=== PATIENT | female | born 1950 | race African-American/Black ===

== ENCOUNTER 2021-03-17 13:08 | Inpatient (IN) | payer MEDICARE, MEDICAID ==
[~2021-03-17] VITALS: Ht 162.6 cm; Wt 64.0 kg
[2021-03-17 13:30] LABS: BASOPHILS % 1.3 % (0.0-2.0); EOSINOPHILS % 1.9 % (0.0-5.0); HEMATOCRIT. 32.1 % (36.0-48.0); HEMOGLOBIN. 10.4 g/dL (12.0-16.0); LYMPHOCYTES % 41.5 % (20.0-50.0); MEAN CORPUSCULAR VOLUME 71.1 fL (81.0-99.0); MEAN PLATELET VOLUME 9.3 fl (7.4-10.4); MONOCYTES % 10.3 % (2.0-8.0); PLATELET 172 x1000/uL (130-400); RED BLOOD CELL COUNT 4.51 mill/uL (4.2-5.4); RED CELL DISTRIBUTION WIDTH 17.1 % (11.6-14.6)
[2021-03-17 13:37] LABS: CHLORIDE 113 mEq/L (98-107)
[2021-03-17] MEDS ORDERED: ENALAPRIL 2.5MG/2ML VIAL 2ML IV ONE (14:30)
[2021-03-17] MEDS ORDERED: FUROSEMIDE 40MG/4ML VIAL IVP ONE (14:30)
[2021-03-17] MEDS ORDERED: ACETAMINOPHEN 325MG TABLET PO PRN (21:45)
[2021-03-17] MEDS ORDERED: MAGNESIUM/ALUMINUM HYDROXIDE/SIMETHICONE 30ML UDC PO PRN (21:45)
[2021-03-17] MEDS ORDERED: LORAZEPAM 2MG/ML CPJ IV PRN (21:45)
[2021-03-17] MEDS ORDERED: ONDANSETRON HCL 4MG/2ML INJ IV PRN (21:45)
[2021-03-17] MEDS ORDERED: MORPHINE SULFATE 2 MG/ML CPJ (NOT FOR IM USE) IV PRN (21:45)
[2021-03-17] MEDS ORDERED: LISINOPRIL 20MG TABLET PO SCH (21:52)
[2021-03-17] MEDS: AMLODIPINE 10MG TABLET PO SCH (22:33)
[2021-03-18] VITALS (7 sets, daily range): BP systolic 156–184; BP diastolic 61–82
[2021-03-18] MEDS: CLONIDINE 0.1MG TABLET PO PRN ×2 (01:26→07:51)
[2021-03-18 06:41] LABS: BASOPHILS % 0.8 % (0.0-2.0); EOSINOPHILS % 1.8 % (0.0-5.0); HEMATOCRIT. 29.7 % (36.0-48.0); HEMOGLOBIN. 9.4 g/dL (12.0-16.0); LYMPHOCYTES % 19.5 % (20.0-50.0); MEAN CORPUSCULAR HEMOGLOBIN 22.4 pg (28.0-32.0); MEAN CORPUSCULAR VOLUME 70.9 fL (81.0-99.0); MEAN PLATELET VOLUME 9.3 fl (7.4-10.4); MONOCYTES % 11.2 % (2.0-8.0); NEUTROPHILS % 66.7 % (40.0-76.0); PLATELET 139 x1000/uL (130-400); RED BLOOD CELL COUNT 4.19 mill/uL (4.2-5.4); RED CELL DISTRIBUTION WIDTH 17.1 % (11.6-14.6)
[2021-03-18 06:49] LABS: CHLORIDE 110 mEq/L (98-107)
[2021-03-18 06:58] LABS: LDL CHOLESTEROL 105 mg/dL (5-100)
[2021-03-18 06:59] LABS: CREATINE KINASE 81 IU/L (26-192); HDL CHOLESTEROL 55 mg/dL (40-59)
[2021-03-18] MEDS ORDERED: NALOXONE HCL 0.4MG/ML VIAL IV PRN (08:30)
[2021-03-18] MEDS ORDERED: OXYB5TAB17 PO (12:02)
[2021-03-18] MEDS ORDERED: NIFE-32 MT (12:02)
[2021-03-18] MEDS ORDERED: ATOR20TA65 MT (12:02)
[2021-03-18] MEDS ORDERED: HYDR100T26 MT (12:02)
[2021-03-18] MEDS ORDERED: IRBE75TA9 MT (12:02)
[2021-03-18] MEDS ORDERED: POTA20TA82 MT (12:02)
[2021-03-18] MEDS ORDERED: TRAZ-251 MT (12:02)
[2021-03-18] MEDS ORDERED: CARV12.545 MT (12:02)
[2021-03-18] MEDS: ENOXAPARIN 30MG/0.3ML SYR SUBCUT SCH (13:14)
[2021-03-18] MEDS: ASPIRIN 81MG EC TABLET PO SCH (13:14)
[2021-03-18] MEDS: AMLODIPINE 10MG TABLET PO SCH (13:14)
[2021-03-18] MEDS: LOSARTAN POTASSIUM 100 MG TABLET PO SCH (13:14)
[2021-03-18] MEDS: FUROSEMIDE 40MG/4ML VIAL IV SCH (13:14)
[2021-03-18] MEDS ORDERED: HYDRALAZINE HCL 10MG TABLET PO SCH (14:00)
[2021-03-18] MEDS: HYDRALAZINE HCL 50MG TABLET PO SCH ×2 (19:16→22:00)
[2021-03-18] MEDS: ATORVASTATIN CALCIUM 20MG TABLET PO SCH (22:12)
[2021-03-19] VITALS (10 sets, daily range): BP systolic 154–190; BP diastolic 72–101
[2021-03-19] MEDS: HYDRALAZINE HCL 50MG TABLET PO SCH ×3 (05:39→21:37)
[2021-03-19 07:16] LABS: BASOPHILS % 0.5 % (0.0-2.0); EOSINOPHILS % 2.4 % (0.0-5.0); HEMATOCRIT. 30.5 % (36.0-48.0); HEMOGLOBIN. 9.6 g/dL (12.0-16.0); MEAN CORPUSCULAR HEMOGLOBIN 22.4 pg (28.0-32.0); MEAN CORPUSCULAR VOLUME 71.4 fL (81.0-99.0); MEAN PLATELET VOLUME 10.1 fl (7.4-10.4); MONOCYTES % 13.3 % (2.0-8.0); NEUTROPHILS % 57.8 % (40.0-76.0); PLATELET 126 x1000/uL (130-400); RED BLOOD CELL COUNT 4.27 mill/uL (4.2-5.4); RED CELL DISTRIBUTION WIDTH 17.3 % (11.6-14.6)
[2021-03-19] MEDS: ASPIRIN 81MG EC TABLET PO SCH (08:25)
[2021-03-19] MEDS: FUROSEMIDE 40MG/4ML VIAL IV SCH (08:26)
[2021-03-19] MEDS: ENOXAPARIN 30MG/0.3ML SYR SUBCUT SCH (08:26)
[2021-03-19] MEDS: AMLODIPINE 10MG TABLET PO SCH (08:27)
[2021-03-19] MEDS: LOSARTAN POTASSIUM 100 MG TABLET PO SCH (08:27)
[2021-03-19] MEDS ORDERED: REGADENOSON 0.4 MG/5 ML IV NR (09:45)
[2021-03-19] MEDS ORDERED: REGADENOSON 0.4 MG/5 ML IV ONE (13:52)
[2021-03-19] MEDS: CLONIDINE 0.1MG TABLET PO PRN (19:52)
[2021-03-19] MEDS: ATORVASTATIN CALCIUM 20MG TABLET PO SCH (21:37)
[2021-03-20] VITALS (8 sets, daily range): BP systolic 157–183; BP diastolic 62–84
[2021-03-20] MEDS: HYDRALAZINE HCL 50MG TABLET PO SCH (05:39)
[2021-03-20 07:43] LABS: BASOPHILS % 0.2 % (0.0-2.0); HEMATOCRIT. 30.4 % (36.0-48.0); HEMOGLOBIN. 9.7 g/dL (12.0-16.0); LYMPHOCYTES % 22.8 % (20.0-50.0); MEAN CORPUSCULAR HEMOGLOBIN 22.6 pg (28.0-32.0); MEAN CORPUSCULAR VOLUME 70.6 fL (81.0-99.0); MEAN PLATELET VOLUME 9.9 fl (7.4-10.4); PLATELET 141 x1000/uL (130-400); RED BLOOD CELL COUNT 4.31 mill/uL (4.2-5.4)
[2021-03-20] MEDS: ASPIRIN 81MG EC TABLET PO SCH (08:03)
[2021-03-20] MEDS: AMLODIPINE 10MG TABLET PO SCH (08:04)
[2021-03-20] MEDS: LOSARTAN POTASSIUM 100 MG TABLET PO SCH (08:04)
[2021-03-20] MEDS: ENOXAPARIN 30MG/0.3ML SYR SUBCUT SCH (08:04)
[2021-03-20] MEDS ORDERED: POTASSIUM CHLORIDE 20MEQ TABLET SR PO NR (09:30)
[2021-03-20] MEDS ORDERED: POTA10CA42 PO (11:17)
[2021-03-20] MEDS ORDERED: LOSA50TA41 PO (11:18)
[2021-03-20] MEDS ORDERED: FURO40TA5 PO (11:18)
[2021-03-20] MEDS ORDERED: ASPI-1406 PO (11:19)
[2021-03-20] MEDS ORDERED: AMLO10TA4 PO (11:20)
[2021-03-20] MEDS ORDERED: HYDRALAZINE HCL 100MG TABLET PO SCH ×2 (12:00→14:00)
[2021-03-21] MEDS ORDERED: LOSARTAN POTASSIUM 100 MG TABLET PO SCH (09:00)
== END 2021-03-20 12:59 | disposition home or self-care (01) | DRG 291 ==
LOC: ER 13:08 → MICUSO 21:10 → 3WST 03-18 08:22
PROVIDERS: ADMIT Hospitalist; ATTEND Hospitalist
PROC: 5A09357 Assistance with Respiratory Ventilation, Less than 24 Consecutive Hours, Continuous Positive Airway Pressure (ICD-10-PCS; principal; 2021-03-17)
DX: I13.0 Hypertensive heart and chronic kidney disease with heart failure and stage 1 through stage 4 chronic kidney disease, or unspecified chronic kidney disease (principal); I50.23 Acute on chronic systolic (congestive) heart failure; I16.9 Hypertensive crisis, unspecified; N17.9 Acute kidney failure, unspecified; E78.5 Hyperlipidemia, unspecified; D63.8 Anemia in other chronic diseases classified elsewhere; R00.1 Bradycardia, unspecified; F12.90 Cannabis use, unspecified, uncomplicated; N18.9 Chronic kidney disease, unspecified; I25.10 Atherosclerotic heart disease of native coronary artery without angina pectoris; Z86.73 Personal history of transient ischemic attack (TIA), and cerebral infarction without residual deficits; Z82.49 Family history of ischemic heart disease and other diseases of the circulatory system; Z87.891 Personal history of nicotine dependence; Z90.711 Acquired absence of uterus with remaining cervical stump; Z98.51 Tubal ligation status; Z90.710 Acquired absence of both cervix and uterus
CPT/HCPCS: 36415; 71045; 78452; 80048; 80053; 80061; 82550; 83735; 84443; 84484; 85025; 93005; 93017; 93306; 93970; 94660; 99285; A9500; J1650; J1940; J2785; J3490

== ENCOUNTER 2021-06-13 09:30 | Inpatient (IN) | payer MEDICARE, MEDICAID ==
[~2021-06-13] VITALS: Ht 162.6 cm; Wt 68.5 kg
[~2021-06-13 09:30] MED LIST: AMLO10TA4 PO; ASPI-1406 PO; ATOR20TA65 MT; FURO40TA5 PO; HYDR100T26 MT; LOSA50TA41 PO; OXYB5TAB17 PO; POTA10CA42 PO; TRAZ-251 MT
[2021-06-13] MEDS ORDERED: IPRATROPIUM BROMIDE (0.02%) 0.5MG/2.5ML NEB HHN STA (10:18)
[2021-06-13] MEDS ORDERED: ALBUTEROL (0.083%) 2.5MG/3ML NEB HHN STA (10:18)
[2021-06-13] MEDS ORDERED: FUROSEMIDE 20MG/2ML VIAL IVP ONE (10:30)
[2021-06-13] MEDS ORDERED: LEVOFLOXACIN 500MG PREMIX 100 ML IV ONE (10:30)
[2021-06-13 10:42] LABS: BASOPHILS % 0.4 % (0.0-2.0); EOSINOPHILS % 0.9 % (0.0-5.0); HEMATOCRIT. 29.2 % (36.0-48.0); HEMOGLOBIN. 8.9 g/dL (12.0-16.0); LYMPHOCYTES % 15.4 % (20.0-50.0); MEAN CORPUSCULAR HEMOGLOBIN 21.4 pg (28.0-32.0); MEAN CORPUSCULAR VOLUME 70.4 fL (81.0-99.0); MEAN PLATELET VOLUME 8.9 fl (7.4-10.4); MONOCYTES % 10.9 % (2.0-8.0); NEUTROPHILS % 72.4 % (40.0-76.0); PLATELET 190 x1000/uL (130-400); RED BLOOD CELL COUNT 4.14 mill/uL (4.2-5.4); RED CELL DISTRIBUTION WIDTH 18.3 % (11.6-14.6)
[2021-06-13 10:48] LABS: CHLORIDE 111 mEq/L (98-107)
[2021-06-13] MEDS ORDERED: DOCUSATE SODIUM 100MG CAPSULE PO PRN (15:15)
[2021-06-13] MEDS ORDERED: IPRATROPIUM/ALBUTEROL 0.5-3(2.5)MG/3ML NEB HHN PRN (15:15)
[2021-06-13] MEDS ORDERED: MAGNESIUM/ALUMINUM HYDROXIDE/SIMETHICONE 30ML UDC PO PRN (15:15)
[2021-06-13] MEDS ORDERED: ENOXAPARIN 40MG/0.4ML SYR SUBCUT SCH (15:15)
[2021-06-13] MEDS ORDERED: ACETAMINOPHEN 325MG TABLET PO PRN (15:15)
[2021-06-13] MEDS: ONDANSETRON HCL 4MG/2ML INJ IV PRN ×2 (18:14→23:30)
[2021-06-13] MEDS: HYDROCODONE/ACETAMINOPHEN 10/325MG TABLET PO PRN (18:15)
[2021-06-13] MEDS: ENOXAPARIN 30MG/0.3ML SYR SUBCUT SCH (18:19)
[2021-06-13] MEDS: CLONIDINE 0.1MG TABLET PO PRN (19:10)
[2021-06-13 23:15] VITALS: BP 179/76
[2021-06-14] VITALS: BP 150/60
[2021-06-14] MEDS: FUROSEMIDE 100MG/10ML VIAL IV SCH ×3 (00:08→16:47)
[2021-06-14] MEDS: POTASSIUM CHLORIDE 20MEQ TABLET SR PO SCH ×2 (00:09→10:40)
[2021-06-14] MEDS: HYDROCODONE/ACETAMINOPHEN 10/325MG TABLET PO PRN (00:57)
[2021-06-14 04:00] VITALS: BP 185/81
[2021-06-14] MEDS: CLONIDINE 0.1MG TABLET PO PRN ×3 (04:57→23:51)
[2021-06-14 07:25] LABS: BASOPHILS % 0.2 % (0.0-2.0); EOSINOPHILS % 0.1 % (0.0-5.0); HEMATOCRIT. 25.2 % (36.0-48.0); LYMPHOCYTES % 10.7 % (20.0-50.0); MEAN CORPUSCULAR HEMOGLOBIN 22.1 pg (28.0-32.0); MEAN CORPUSCULAR VOLUME 69.5 fL (81.0-99.0); MEAN PLATELET VOLUME 9.8 fl (7.4-10.4); MONOCYTES % 6.8 % (2.0-8.0); NEUTROPHILS % 82.2 % (40.0-76.0); PLATELET 172 x1000/uL (130-400); RED BLOOD CELL COUNT 3.63 mill/uL (4.2-5.4)
[2021-06-14 07:38] LABS: PHOSPHORUS 4.2 mg/dL (2.5-4.9)
[2021-06-14 07:43] LABS: T4 FREE 1.28 ng/dL (0.76-1.46)
[2021-06-14 08:00] VITALS: BP 136/73
[2021-06-14 08:04] LABS: FERRITIN 24 ng/mL (10-291)
[2021-06-14 08:19] LABS: VITAMIN B12 SERUM 581 pg/mL (211-911)
[2021-06-14 09:43] LABS: BG BASE EXCESS 1.1 mmol/L (-2.0-2.0); BG CARBOXYHEMOGLOBIN 0.3 % (0.5-1.5); BG DEOXYHEMOGLOBIN 10.2 % (0.0-5.0); BG FRACTION INSPIRED OXYGEN 28; BG HCO3 ACT 25.3 mmol/L (22.0-26.0); BG METHEMOGLOBIN 0.4 % (0.0-1.5); BG OXYGEN SATURATION 89.7 % (92.0-98.5); BG OXYHEMOGLOBIN 89.1 % (94.0-97.0); BG PCO2 38.7 mmHg (35.0-45.0); BG PH 7.434 (7.350-7.450); BG PO2 60.3 mmHg (75.0-100.0); BG SAMPLE SITE LEFT BRACHIAL; BG TOTAL HEMOGLOBIN 8.4 g/dL (12.0-18.0); BG VENT MODE NASAL CANNULA
[2021-06-14 10:12] LABS: *AMPHETAMINES SCREEN URINE NEGATIVE (NEGATIVE); *BARBITURATES SCREEN URINE NEGATIVE (NEGATIVE); *BENZODIAZEPINES SCREEN URINE NEGATIVE (NEGATIVE); *COCAINE SCREEN URINE NEGATIVE (NEGATIVE); METHADONE URINE SCREEN NEGATIVE (NEGATIVE)
[2021-06-14 10:13] LABS: CANNABINOID URINE SCREEN PRESUMTIVE POSITIVE (NEGATIVE); OPIATES URINE SCREEN PRESUMTIVE POSITIVE (NEGATIVE); PHENCYCLIDINE URINE SCREEN NEGATIVE (NEGATIVE)
[2021-06-14] MEDS: CARVEDILOL 6.25 MG TABLET PO SCH ×2 (10:40→20:28)
[2021-06-14 12:00] VITALS: BP 179/83
[2021-06-14 13:05] LABS: PLATELET ESTIMATE NORMAL
[2021-06-14 16:00] VITALS: BP 178/77
[2021-06-14] MEDS: ENOXAPARIN 30MG/0.3ML SYR SUBCUT SCH (16:47)
[2021-06-14 20:00] VITALS: BP 176/66
[2021-06-14] MEDS: FAMOTIDINE 20MG TABLET PO SCH (20:28)
[2021-06-15] VITALS: BP 173/74
[2021-06-15 04:00] VITALS: BP 158/75
[2021-06-15 07:21] LABS: BASOPHILS % 0.4 % (0.0-2.0); EOSINOPHILS % 1.5 % (0.0-5.0); HEMATOCRIT. 25.7 % (36.0-48.0); MEAN CORPUSCULAR HEMOGLOBIN 21.7 pg (28.0-32.0); MEAN CORPUSCULAR VOLUME 69.6 fL (81.0-99.0); MEAN PLATELET VOLUME 9.7 fl (7.4-10.4); MONOCYTES % 11.2 % (2.0-8.0); NEUTROPHILS % 66.9 % (40.0-76.0); PLATELET 169 x1000/uL (130-400); RED BLOOD CELL COUNT 3.69 mill/uL (4.2-5.4); RED CELL DISTRIBUTION WIDTH 17.5 % (11.6-14.6)
[2021-06-15] MEDS: HYDROCODONE/ACETAMINOPHEN 10/325MG TABLET PO PRN (07:51)
[2021-06-15 08:00] VITALS: BP 180/71
[2021-06-15] MEDS: CARVEDILOL 6.25 MG TABLET PO SCH ×2 (08:38→21:22)
[2021-06-15] MEDS: POTASSIUM CHLORIDE 20MEQ TABLET SR PO SCH (08:38)
[2021-06-15] MEDS: FUROSEMIDE 100MG/10ML VIAL IV SCH (08:38)
[2021-06-15] MEDS ORDERED: FUROSEMIDE 40MG/4ML VIAL IV SCH (09:00)
[2021-06-15 12:00] VITALS: BP 167/65
[2021-06-15] MEDS: CLONIDINE 0.2MG TABLET PO SCH ×2 (14:21→21:21)
[2021-06-15 16:00] VITALS: BP 158/68
[2021-06-15] MEDS: ENOXAPARIN 30MG/0.3ML SYR SUBCUT SCH (16:22)
[2021-06-15 20:00] VITALS: BP 154/67
[2021-06-15] MEDS: FAMOTIDINE 20MG TABLET PO SCH (21:21)
[2021-06-16] VITALS: BP 158/63
[2021-06-16 04:00] VITALS: BP 172/70
[2021-06-16 06:23] LABS: BASOPHILS % 0.3 % (0.0-2.0); EOSINOPHILS % 1.5 % (0.0-5.0); LYMPHOCYTES % 20.8 % (20.0-50.0); MEAN CORPUSCULAR HEMOGLOBIN 21.5 pg (28.0-32.0); MEAN CORPUSCULAR VOLUME 69.7 fL (81.0-99.0); MEAN PLATELET VOLUME 9.9 fl (7.4-10.4); MONOCYTES % 13.4 % (2.0-8.0); PLATELET 169 x1000/uL (130-400); RED BLOOD CELL COUNT 3.73 mill/uL (4.2-5.4); RED CELL DISTRIBUTION WIDTH 17.7 % (11.6-14.6)
[2021-06-16] MEDS: CLONIDINE 0.2MG TABLET PO SCH ×3 (06:23→21:44)
[2021-06-16 08:00] VITALS: BP 173/70
[2021-06-16] MEDS: CARVEDILOL 6.25 MG TABLET PO SCH ×2 (08:39→21:00)
[2021-06-16] MEDS: POTASSIUM CHLORIDE 20MEQ TABLET SR PO SCH (08:39)
[2021-06-16] MEDS: FERROUS SULFATE 325MG TABLET PO SCH ×3 (08:39→17:30)
[2021-06-16] MEDS ORDERED: LOSARTAN POTASSIUM 50 MG TABLET PO SCH (09:00)
[2021-06-16] MEDS: SODIUM CHLORIDE 0.45% 1,000 ML IV SCH (10:52)
[2021-06-16 10:59] LABS: BG BASE EXCESS 3.9 mmol/L (-2.0-2.0); BG CARBOXYHEMOGLOBIN 0.2 % (0.5-1.5); BG DEOXYHEMOGLOBIN 4.7 % (0.0-5.0); BG FRACTION INSPIRED OXYGEN 21; BG HCO3 ACT 27.6 mmol/L (22.0-26.0); BG METHEMOGLOBIN 0.3 % (0.0-1.5); BG OXYGEN SATURATION 95.3 % (92.0-98.5); BG OXYHEMOGLOBIN 94.8 % (94.0-97.0); BG PCO2 38.1 mmHg (35.0-45.0); BG PH 7.478 (7.350-7.450); BG PO2 75.9 mmHg (75.0-100.0); BG SAMPLE SITE LEFT BRACHIAL; BG TOTAL HEMOGLOBIN 8.8 g/dL (12.0-18.0); BG VENT MODE ROOM AIR
[2021-06-16 11:20] LABS: CREATINE KINASE 84 IU/L (26-192)
[2021-06-16 12:00] VITALS: BP 137/67
[2021-06-16 16:00] VITALS: BP 126/65
[2021-06-16] MEDS: ENOXAPARIN 30MG/0.3ML SYR SUBCUT SCH (17:30)
[2021-06-16 18:31] LABS: CLARITY URINE CLEAR (CLEAR); COLOR URINE YELLOW (YELLOW); KETONES URINE NEGATIVE (NEGATIVE); LEUKOCYTE ESTERASE URINE NEGATIVE (NEGATIVE); NITRITE URINE NEGATIVE (NEGATIVE); OCCULT BLOOD URINE NEGATIVE (NEGATIVE); PROTEIN URINE 3+ (NEGATIVE); SPECIFIC GRAVITY URINE 1.016 (1.005-1.030); UROBILINOGEN URINE 0.2 E.U./dL (0.2-1.0)
[2021-06-16 20:00] VITALS: BP 160/69
[2021-06-16] MEDS: FAMOTIDINE 20MG TABLET PO SCH (21:43)
[2021-06-17] VITALS: BP 175/75
[2021-06-17] MEDS: CLONIDINE 0.1MG TABLET PO PRN (00:23)
[2021-06-17 05:53] VITALS: BP 164/73
[2021-06-17] MEDS: CLONIDINE 0.2MG TABLET PO SCH ×3 (06:14→21:33)
[2021-06-17 06:59] LABS: BASOPHILS % 0.7 % (0.0-2.0); EOSINOPHILS % 2.1 % (0.0-5.0); HEMATOCRIT. 26.2 % (36.0-48.0); HEMOGLOBIN. 8.1 g/dL (12.0-16.0); LYMPHOCYTES % 20.3 % (20.0-50.0); MEAN CORPUSCULAR HEMOGLOBIN 21.9 pg (28.0-32.0); MEAN CORPUSCULAR VOLUME 70.5 fL (81.0-99.0); MEAN PLATELET VOLUME 9.8 fl (7.4-10.4); MONOCYTES % 10.6 % (2.0-8.0); NEUTROPHILS % 66.3 % (40.0-76.0); PLATELET 167 x1000/uL (130-400); RED BLOOD CELL COUNT 3.71 mill/uL (4.2-5.4); RED CELL DISTRIBUTION WIDTH 17.1 % (11.6-14.6)
[2021-06-17 08:00] VITALS: BP 130/55
[2021-06-17] MEDS: CARVEDILOL 6.25 MG TABLET PO SCH ×2 (08:43→21:32)
[2021-06-17] MEDS: FERROUS SULFATE 325MG TABLET PO SCH ×3 (08:48→16:53)
[2021-06-17 12:00] VITALS: BP 140/53
[2021-06-17 16:00] VITALS: BP 153/55
[2021-06-17] MEDS: ENOXAPARIN 30MG/0.3ML SYR SUBCUT SCH (16:53)
[2021-06-17 20:00] VITALS: BP 150/62
[2021-06-17] MEDS: FAMOTIDINE 20MG TABLET PO SCH (21:32)
[2021-06-18] VITALS: BP 149/52
[2021-06-18] MEDS: SODIUM CHLORIDE 0.45% 1,000 ML IV SCH (00:49)
[2021-06-18 04:00] VITALS: BP 160/64
[2021-06-18] MEDS: CLONIDINE 0.2MG TABLET PO SCH ×2 (06:23→14:42)
[2021-06-18 08:00] VITALS: BP 156/67
[2021-06-18] MEDS: CARVEDILOL 6.25 MG TABLET PO SCH (08:29)
[2021-06-18] MEDS: FERROUS SULFATE 325MG TABLET PO SCH ×2 (08:39→12:31)
[2021-06-18 12:00] VITALS: BP 173/63
[2021-06-18] MEDS ORDERED: NA PHOS,M-B/NA PHOS,DI-BA ENEMA 118ML PR SCH (12:00)
[2021-06-18] MEDS ORDERED: DOCUSATE SODIUM 100MG CAPSULE PO SCH (12:00)
[2021-06-18] MEDS ORDERED: HYDRALAZINE 20MG/ML VIAL IV SCH (12:45)
[2021-06-18 13:01] LABS: BASOPHILS % 0.3 % (0.0-2.0); EOSINOPHILS % 2.9 % (0.0-5.0); HEMATOCRIT. 26.2 % (36.0-48.0); HEMOGLOBIN. 8.1 g/dL (12.0-16.0); LYMPHOCYTES % 23.7 % (20.0-50.0); MEAN CORPUSCULAR HEMOGLOBIN 21.4 pg (28.0-32.0); MEAN CORPUSCULAR VOLUME 69.4 fL (81.0-99.0); MEAN PLATELET VOLUME 9.3 fl (7.4-10.4); MONOCYTES % 13.2 % (2.0-8.0); NEUTROPHILS % 59.9 % (40.0-76.0); PLATELET 177 x1000/uL (130-400); RED BLOOD CELL COUNT 3.77 mill/uL (4.2-5.4); RED CELL DISTRIBUTION WIDTH 17.4 % (11.6-14.6)
[2021-06-18] MEDS ORDERED: FERR-63 PO (13:34)
[2021-06-18] MEDS ORDERED: COR6 PO (13:34)
[2021-06-18] MEDS ORDERED: HYDR-4135 MT (13:34)
[2021-06-18 13:37] LABS: CHLORIDE 107 mEq/L (98-107)
[2021-06-18] MEDS ORDERED: HYDRALAZINE HCL 25MG TABLET PO NR (15:39)
[2021-06-18 15:48] VITALS: BP 179/68
[2021-06-18 16:00] VITALS: BP 186/71
== END 2021-06-18 16:15 | disposition home health service (06) | DRG 291 ==
LOC: ER 09:30 → MICUSO 12:12 → EDBEDREQ 12:17 → 6WST 22:22
PROVIDERS: ADMIT Internal Medicine Pulmonary Disease; ATTEND Internal Medicine Pulmonary Disease
DX: I13.0 Hypertensive heart and chronic kidney disease with heart failure and stage 1 through stage 4 chronic kidney disease, or unspecified chronic kidney disease (principal); J96.00 Acute respiratory failure, unspecified whether with hypoxia or hypercapnia; I50.23 Acute on chronic systolic (congestive) heart failure; I31.3 Pericardial effusion (noninflammatory); N17.9 Acute kidney failure, unspecified; D64.9 Anemia, unspecified; E78.5 Hyperlipidemia, unspecified; N18.9 Chronic kidney disease, unspecified; D50.9 Iron deficiency anemia, unspecified; I35.1 Nonrheumatic aortic (valve) insufficiency; Z20.822 Contact with and (suspected) exposure to COVID-19; R00.1 Bradycardia, unspecified; I27.20 Pulmonary hypertension, unspecified; I44.0 Atrioventricular block, first degree; Z86.73 Personal history of transient ischemic attack (TIA), and cerebral infarction without residual deficits; Z90.710 Acquired absence of both cervix and uterus; Z79.82 Long term (current) use of aspirin; Z79.899 Other long term (current) drug therapy
CPT/HCPCS: 36415; 36600; 71045; 76770; 78582; 80048; 80053; 80061; 80305; 81003; 82375; 82550; 82607; 82728; 82746; 82805; 83540; 83550; 83605; 83735; 83880; 84100; 84439; 84443; 84484; 85025; 85379; 87426; 93005; 93306; 93970; 94640; 97162; 97166; 99291; A9558; C1893; J0360; J1650; J1940; J1956; J2405

== ENCOUNTER 2021-06-18 17:26 | Inpatient (IN) | payer MEDICARE, MEDICAID ==
[~2021-06-18] VITALS: Ht 170.2 cm; Wt 63.5 kg
[~2021-06-18 17:26] MED LIST changes: -AMLO10TA4 PO; -ASPI-1406 PO; -ATOR20TA65 MT; +COR6 PO; +FERR-63 PO; -FURO40TA5 PO; +HYDR-4135 MT; -HYDR100T26 MT; -LOSA50TA41 PO; -OXYB5TAB17 PO; -POTA10CA42 PO; -TRAZ-251 MT
[2021-06-18] MEDS ORDERED: NITROGLYCERIN OINT 1GM/INCH UDPKT TD ONE (20:00)
[2021-06-18] MEDS ORDERED: ASPIRIN 81MG TABLET PO ONE (20:00)
[2021-06-18 20:24] LABS: BASOPHILS % 0.6 % (0.0-2.0); EOSINOPHILS % 0.5 % (0.0-5.0); HEMATOCRIT. 28.3 % (36.0-48.0); HEMOGLOBIN. 8.5 g/dL (12.0-16.0); LYMPHOCYTES % 8.4 % (20.0-50.0); MEAN CORPUSCULAR HEMOGLOBIN 21.1 pg (28.0-32.0); MEAN CORPUSCULAR VOLUME 69.9 fL (81.0-99.0); MEAN PLATELET VOLUME 9.6 fl (7.4-10.4); MONOCYTES % 8.9 % (2.0-8.0); NEUTROPHILS % 81.6 % (40.0-76.0); PLATELET 171 x1000/uL (130-400); RED BLOOD CELL COUNT 4.05 mill/uL (4.2-5.4); RED CELL DISTRIBUTION WIDTH 17.7 % (11.6-14.6)
[2021-06-18 20:31] LABS: CHLORIDE 109 mEq/L (98-107)
[2021-06-18 20:34] LABS: PARTIAL THROMBOPLASTIN TIME 25.6 sec (23.4-31.0); PROTHROMBIN TIME 10.5 sec (9.6-11.0)
[2021-06-18 21:34] LABS: PLATELET ESTIMATE NORMAL
[2021-06-19] MEDS ORDERED: FUROSEMIDE 20MG/2ML VIAL IVP ONE (00:30)
[2021-06-19] MEDS ORDERED: ACETAMINOPHEN 325MG TABLET PO PRN (06:00)
[2021-06-19] MEDS ORDERED: ENOXAPARIN 40MG/0.4ML SYR SUBCUT SCH (06:00)
[2021-06-19] MEDS ORDERED: DOCUSATE SODIUM 100MG CAPSULE PO PRN (06:00)
[2021-06-19 06:23] LABS: BASOPHILS % 0.5 % (0.0-2.0); HEMATOCRIT. 25.4 % (36.0-48.0); LYMPHOCYTES % 24.3 % (20.0-50.0); MEAN CORPUSCULAR HEMOGLOBIN 21.6 pg (28.0-32.0); MEAN CORPUSCULAR VOLUME 68.5 fL (81.0-99.0); MEAN PLATELET VOLUME 9.4 fl (7.4-10.4); MONOCYTES % 12.4 % (2.0-8.0); NEUTROPHILS % 60.8 % (40.0-76.0); PLATELET 160 x1000/uL (130-400); RED CELL DISTRIBUTION WIDTH 17.3 % (11.6-14.6)
[2021-06-19] MEDS: FERROUS SULFATE 325MG TABLET PO SCH ×3 (07:39→18:26)
[2021-06-19] MEDS: ENOXAPARIN 30MG/0.3ML SYR SUBCUT SCH (10:24)
[2021-06-19] MEDS: HYDRALAZINE HCL 50MG TABLET PO SCH ×3 (10:25→21:00)
[2021-06-19] MEDS: CARVEDILOL 6.25 MG TABLET PO SCH ×2 (10:25→21:00)
[2021-06-19 11:40] VITALS: BP 185/71
[2021-06-19 11:50] VITALS: BP 185/71
[2021-06-19] MEDS ORDERED: AMLODIPINE 5MG TABLET PO NR (12:00)
[2021-06-19] MEDS: NITROGLYCERIN OINT 1GM/INCH UDPKT TD SCH ×2 (13:43→21:00)
[2021-06-19 16:00] VITALS: BP 174/72
[2021-06-19 20:00] VITALS: BP 99/54
[2021-06-19] MEDS: FAMOTIDINE 20MG TABLET PO SCH (21:59)
[2021-06-20] VITALS: BP 166/71
[2021-06-20] MEDS ORDERED: FAMOTIDINE 20MG TABLET PO SCH (01:00)
[2021-06-20 04:00] VITALS: BP 178/75
[2021-06-20] MEDS: HYDRALAZINE HCL 50MG TABLET PO SCH ×3 (05:42→21:41)
[2021-06-20] MEDS: NITROGLYCERIN OINT 1GM/INCH UDPKT TD SCH (05:42)
[2021-06-20 08:00] VITALS: BP 164/65
[2021-06-20 08:57] LABS: BASOPHILS % 0.7 % (0.0-2.0); EOSINOPHILS % 2.1 % (0.0-5.0); HEMATOCRIT. 26.4 % (36.0-48.0); HEMOGLOBIN. 8.1 g/dL (12.0-16.0); LYMPHOCYTES % 27.1 % (20.0-50.0); MEAN CORPUSCULAR HEMOGLOBIN 21.6 pg (28.0-32.0); MEAN PLATELET VOLUME 9.8 fl (7.4-10.4); MONOCYTES % 14.6 % (2.0-8.0); NEUTROPHILS % 55.5 % (40.0-76.0); PLATELET 188 x1000/uL (130-400); RED BLOOD CELL COUNT 3.77 mill/uL (4.2-5.4); RED CELL DISTRIBUTION WIDTH 17.7 % (11.6-14.6)
[2021-06-20] MEDS ORDERED: AMLODIPINE 5MG TABLET PO SCH (09:00)
[2021-06-20] MEDS ORDERED: FUROSEMIDE 40MG/4ML VIAL IVP SCH (09:00)
[2021-06-20] MEDS: FERROUS SULFATE 325MG TABLET PO SCH ×3 (09:02→17:53)
[2021-06-20] MEDS: CARVEDILOL 6.25 MG TABLET PO SCH ×2 (09:06→21:41)
[2021-06-20] MEDS: ENOXAPARIN 30MG/0.3ML SYR SUBCUT SCH (09:07)
[2021-06-20 12:00] VITALS: BP 189/78
[2021-06-20] MEDS ORDERED: ISOSORBIDE MONONITRATE 30MG TABLET SR 24HR PO SCH (12:00)
[2021-06-20 16:00] VITALS: BP 162/66
[2021-06-20 20:00] VITALS: BP_SYST 187; BP_SYST 91; BP_DIAS 57; BP_DIAS 73
[2021-06-20] MEDS: AMLODIPINE 5MG TABLET PO SCH (21:41)
[2021-06-20] MEDS: FAMOTIDINE 20MG TABLET PO SCH (21:41)
[2021-06-20] MEDS: TRAZODONE HCL 50MG TABLET PO SCH (21:41)
[2021-06-21 04:30] VITALS: BP 180/71
[2021-06-21] MEDS: HYDRALAZINE HCL 50MG TABLET PO SCH (05:06)
[2021-06-21] MEDS ORDERED: CLONIDINE 0.1MG TABLET PO SCH (06:45)
[2021-06-21 07:22] LABS: BASOPHILS % 0.7 % (0.0-2.0); EOSINOPHILS % 1.8 % (0.0-5.0); HEMATOCRIT. 26.7 % (36.0-48.0); HEMOGLOBIN. 8.5 g/dL (12.0-16.0); LYMPHOCYTES % 26.1 % (20.0-50.0); MEAN CORPUSCULAR HEMOGLOBIN 22.3 pg (28.0-32.0); MONOCYTES % 13.2 % (2.0-8.0); NEUTROPHILS % 58.2 % (40.0-76.0); RED BLOOD CELL COUNT 3.82 mill/uL (4.2-5.4); RED CELL DISTRIBUTION WIDTH 17.8 % (11.6-14.6)
[2021-06-21 08:00] VITALS: BP 146/60
[2021-06-21] MEDS: AMLODIPINE 5MG TABLET PO SCH ×2 (09:32→21:31)
[2021-06-21] MEDS: FERROUS SULFATE 325MG TABLET PO SCH ×3 (09:32→16:50)
[2021-06-21] MEDS: FUROSEMIDE 40MG TABLET PO SCH (09:32)
[2021-06-21] MEDS: CARVEDILOL 6.25 MG TABLET PO SCH ×2 (09:33→21:31)
[2021-06-21] MEDS: ISOSORBIDE MONONITRATE 30MG TABLET SR 24HR PO SCH (09:33)
[2021-06-21] MEDS: ENOXAPARIN 30MG/0.3ML SYR SUBCUT SCH (09:34)
[2021-06-21 12:00] VITALS: BP 140/64
[2021-06-21] MEDS: HYDRALAZINE HCL 25MG TABLET PO SCH ×2 (13:07→21:31)
[2021-06-21 15:37] VITALS: BP 116/65
[2021-06-21 19:49] VITALS: BP 144/65
[2021-06-21] MEDS: TRAZODONE HCL 50MG TABLET PO SCH (21:00)
[2021-06-21] MEDS: FAMOTIDINE 20MG TABLET PO SCH (21:32)
[2021-06-22 04:00] VITALS: BP 160/69
[2021-06-22] MEDS: HYDRALAZINE HCL 25MG TABLET PO SCH ×3 (05:53→21:27)
[2021-06-22 08:00] VITALS: BP 178/78
[2021-06-22] MEDS: FERROUS SULFATE 325MG TABLET PO SCH ×3 (08:42→17:08)
[2021-06-22] MEDS: CLONIDINE 0.1MG TABLET PO PRN (08:43)
[2021-06-22] MEDS: CARVEDILOL 6.25 MG TABLET PO SCH ×2 (08:43→21:26)
[2021-06-22] MEDS: ISOSORBIDE MONONITRATE 30MG TABLET SR 24HR PO SCH (08:43)
[2021-06-22] MEDS: AMLODIPINE 5MG TABLET PO SCH ×2 (08:43→21:26)
[2021-06-22] MEDS: FUROSEMIDE 40MG TABLET PO SCH (08:44)
[2021-06-22] MEDS: ENOXAPARIN 30MG/0.3ML SYR SUBCUT SCH (08:44)
[2021-06-22 12:00] VITALS: BP 140/68
[2021-06-22 12:22] LABS: BASOPHILS % 0.6 % (0.0-2.0); HEMATOCRIT. 25.4 % (36.0-48.0); HEMOGLOBIN. 7.8 g/dL (12.0-16.0); LYMPHOCYTES % 30.6 % (20.0-50.0); MEAN CORPUSCULAR HEMOGLOBIN 20.9 pg (28.0-32.0); MEAN CORPUSCULAR VOLUME 68.3 fL (81.0-99.0); MEAN PLATELET VOLUME 9.1 fl (7.4-10.4); MONOCYTES % 12.2 % (2.0-8.0); NEUTROPHILS % 54.6 % (40.0-76.0); PLATELET 185 x1000/uL (130-400); RED BLOOD CELL COUNT 3.71 mill/uL (4.2-5.4); RED CELL DISTRIBUTION WIDTH 18.3 % (11.6-14.6)
[2021-06-22 16:00] VITALS: BP 110/56
[2021-06-22] MEDS ORDERED: ISOSORBIDE MONONITRATE 60MG TABLET SR 24HR PO SCH (18:22)
[2021-06-22 20:00] VITALS: BP 159/62
[2021-06-22] MEDS: TRAZODONE HCL 50MG TABLET PO SCH (21:27)
[2021-06-22] MEDS: FAMOTIDINE 20MG TABLET PO SCH (21:27)
[2021-06-23] VITALS: BP 154/63
[2021-06-23 04:00] VITALS: BP 177/79
[2021-06-23] MEDS: HYDRALAZINE HCL 25MG TABLET PO SCH ×2 (05:57→13:47)
[2021-06-23 06:41] LABS: BASOPHILS % 1.4 % (0.0-2.0); EOSINOPHILS % 2.7 % (0.0-5.0); HEMATOCRIT. 26.5 % (36.0-48.0); HEMOGLOBIN. 8.4 g/dL (12.0-16.0); LYMPHOCYTES % 30.3 % (20.0-50.0); MEAN CORPUSCULAR HEMOGLOBIN 21.7 pg (28.0-32.0); MEAN CORPUSCULAR VOLUME 68.4 fL (81.0-99.0); MEAN PLATELET VOLUME 9.5 fl (7.4-10.4); MONOCYTES % 12.1 % (2.0-8.0); NEUTROPHILS % 53.5 % (40.0-76.0); PLATELET 199 x1000/uL (130-400); RED BLOOD CELL COUNT 3.88 mill/uL (4.2-5.4); RED CELL DISTRIBUTION WIDTH 17.8 % (11.6-14.6)
[2021-06-23 08:00] VITALS: BP 159/71
[2021-06-23] MEDS: ENOXAPARIN 30MG/0.3ML SYR SUBCUT SCH (09:17)
[2021-06-23] MEDS: AMLODIPINE 5MG TABLET PO SCH ×2 (09:17→20:05)
[2021-06-23] MEDS: FERROUS SULFATE 325MG TABLET PO SCH ×3 (09:18→18:52)
[2021-06-23] MEDS: FUROSEMIDE 40MG TABLET PO SCH (09:18)
[2021-06-23] MEDS: CARVEDILOL 6.25 MG TABLET PO SCH ×2 (09:18→20:05)
[2021-06-23 12:00] VITALS: BP 161/61
[2021-06-23] MEDS: CLONIDINE 0.1MG TABLET PO PRN ×2 (13:46→20:04)
[2021-06-23 16:00] VITALS: BP 139/62
[2021-06-23 16:41] VITALS: BP 139/62
[2021-06-23] MEDS: FAMOTIDINE 20MG TABLET PO SCH (20:04)
[2021-06-23] MEDS: TRAZODONE HCL 50MG TABLET PO SCH (20:05)
== END 2021-06-23 20:42 | DRG 291 ==
LOC: ER 17:26 → MICUSO 06-19 06:07 → 6WST 06-19 10:35
PROVIDERS: ADMIT Internal Medicine Pulmonary Disease; ATTEND Internal Medicine Pulmonary Disease
DX: I13.0 Hypertensive heart and chronic kidney disease with heart failure and stage 1 through stage 4 chronic kidney disease, or unspecified chronic kidney disease (principal); J96.00 Acute respiratory failure, unspecified whether with hypoxia or hypercapnia; I50.23 Acute on chronic systolic (congestive) heart failure; N17.9 Acute kidney failure, unspecified; I35.1 Nonrheumatic aortic (valve) insufficiency; I27.21 Secondary pulmonary arterial hypertension; N18.9 Chronic kidney disease, unspecified; E78.5 Hyperlipidemia, unspecified; I25.10 Atherosclerotic heart disease of native coronary artery without angina pectoris; I42.9 Cardiomyopathy, unspecified; Z20.822 Contact with and (suspected) exposure to COVID-19; I44.0 Atrioventricular block, first degree; K59.09 Other constipation; Z90.710 Acquired absence of both cervix and uterus; Z86.73 Personal history of transient ischemic attack (TIA), and cerebral infarction without residual deficits; Z79.899 Other long term (current) drug therapy; Z82.49 Family history of ischemic heart disease and other diseases of the circulatory system
CPT/HCPCS: 36415; 71045; 80048; 80053; 80076; 82570; 83735; 83880; 84100; 84145; 84156; 84443; 84484; 85025; 87426; 93005; 93970; 97162; 99285; J1650; J1940

== ENCOUNTER 2021-09-29 12:17 | Inpatient (IN) | payer MEDICARE, MEDICAID ==
[~2021-09-29] VITALS: Ht 162.6 cm; Wt 59.2 kg
[2021-09-29] MEDS: ALBUTEROL (0.083%) 2.5MG/3ML NEB HHN SCH ×3 (12:10→12:54)
[~2021-09-29 12:17] MED LIST changes: +FURO-151 MT
[2021-09-29] MEDS ORDERED: METHYLPREDNISOLONE SOD SUCC 125 MG/2 ML VIAL IV STA (12:19)
[2021-09-29] MEDS ORDERED: IPRATROPIUM BROMIDE (0.02%) 0.5MG/2.5ML NEB HHN STA (12:19)
[2021-09-29] MEDS ORDERED: MAGNESIUM 2 G PREMIX 50 ML IV ONE (12:30)
[2021-09-29 12:52] LABS: BASOPHILS % 1.2 % (0.0-2.0); EOSINOPHILS % 0.4 % (0.0-5.0); HEMATOCRIT. 25.8 % (36.0-48.0); HEMOGLOBIN. 7.7 g/dL (12.0-16.0); LYMPHOCYTES % 24.6 % (20.0-50.0); MEAN CORPUSCULAR HEMOGLOBIN 22.7 pg (28.0-32.0); MEAN CORPUSCULAR VOLUME 76.4 fL (81.0-99.0); MEAN PLATELET VOLUME 8.7 fl (7.4-10.4); MONOCYTES % 6.9 % (2.0-8.0); NEUTROPHILS % 66.9 % (40.0-76.0); PLATELET 273 x1000/uL (130-400); RED BLOOD CELL COUNT 3.38 mill/uL (4.2-5.4); RED CELL DISTRIBUTION WIDTH 24.2 % (11.6-14.6)
[2021-09-29 12:59] LABS: CHLORIDE 113 mEq/L (98-107)
[2021-09-29] MEDS ORDERED: CEFTRIAXONE 1 G PREMIX 50 ML IV NR (13:00)
[2021-09-29] MEDS ORDERED: AZITHROMYCIN 500MG/250ML 250 ML IV NR (13:00)
[2021-09-29 13:18] LABS: BG BASE EXCESS -5.2 mmol/L (-2.0-2.0); BG CARBOXYHEMOGLOBIN 1.4 % (0.5-1.5); BG DEOXYHEMOGLOBIN 1.2 % (0.0-5.0); BG FRACTION INSPIRED OXYGEN 70; BG HCO3 ACT 19.3 mmol/L (22.0-26.0); BG METHEMOGLOBIN 0.5 % (0.0-1.5); BG OXYGEN SATURATION 98.8 % (92.0-98.5); BG OXYHEMOGLOBIN 96.9 % (94.0-97.0); BG PCO2 33.5 mmHg (35.0-45.0); BG PH 7.379 (7.350-7.450); BG PO2 135.6 mmHg (75.0-100.0); BG SAMPLE SITE RIGHT BRACHIAL; BG TOTAL HEMOGLOBIN 7.7 g/dL (12.0-18.0); BG TOTAL RESPIRATORY RATE 24 b/min; BG VENT MODE MASK - BIPAP
[2021-09-29 13:24] LABS: PLATELET ESTIMATE NORMAL
[2021-09-29] MEDS ORDERED: FUROSEMIDE 40MG/4ML VIAL IVP ONE (13:30)
[2021-09-29] MEDS ORDERED: ASPIRIN 81MG TABLET PO ONE (13:30)
[2021-09-29 19:22] LABS: CLARITY URINE CLOUDY (CLEAR); COLOR URINE YELLOW (YELLOW); KETONES URINE NEGATIVE (NEGATIVE); LEUKOCYTE ESTERASE URINE 1+ (NEGATIVE); NITRITE URINE NEGATIVE (NEGATIVE); OCCULT BLOOD URINE NEGATIVE (NEGATIVE); PROTEIN URINE 2+ (NEGATIVE); SPECIFIC GRAVITY URINE 1.011 (1.005-1.030); UROBILINOGEN URINE 0.2 E.U./dL (0.2-1.0)
[2021-09-29] MEDS ORDERED: ENOXAPARIN 40MG/0.4ML SYR SUBCUT SCH (23:15)
[2021-09-29] MEDS ORDERED: IPRATROPIUM/ALBUTEROL 0.5-3(2.5)MG/3ML NEB HHN PRN (23:15)
[2021-09-30] VITALS (9 sets, daily range): BP systolic 129–152; BP diastolic 59–65
[2021-09-30 05:47] LABS: BASOPHILS % 1.6 % (0.0-2.0); LYMPHOCYTES % 11.1 % (20.0-50.0); MEAN CORPUSCULAR HEMOGLOBIN 22.3 pg (28.0-32.0); MEAN CORPUSCULAR VOLUME 72.6 fL (81.0-99.0); MEAN PLATELET VOLUME 9.1 fl (7.4-10.4); MONOCYTES % 6.3 % (2.0-8.0); PLATELET 157 x1000/uL (130-400); RED BLOOD CELL COUNT 2.76 mill/uL (4.2-5.4); RED CELL DISTRIBUTION WIDTH 23.7 % (11.6-14.6)
[2021-09-30 05:51] LABS: HEMATOCRIT. 20.1 % (36.0-48.0); HEMOGLOBIN. 6.2 g/dL (12.0-16.0)
[2021-09-30] MEDS ORDERED: FUROSEMIDE 100MG/10ML VIAL IVP SCH (06:00)
[2021-09-30] MEDS: HYDRALAZINE HCL 50MG TABLET PO SCH ×3 (06:43→21:10)
[2021-09-30] MEDS ORDERED: ENOXAPARIN 30MG/0.3ML SYR SUBCUT SCH (09:00)
[2021-09-30] MEDS: FERROUS SULFATE 325MG TABLET PO SCH ×3 (09:37→18:09)
[2021-09-30] MEDS: CARVEDILOL 6.25 MG TABLET PO SCH ×2 (09:37→20:21)
[2021-09-30 09:54] LABS: BASOPHILS % 0.4 % (0.0-2.0); LYMPHOCYTES % 10.2 % (20.0-50.0); MEAN CORPUSCULAR VOLUME 73.5 fL (81.0-99.0); MEAN PLATELET VOLUME 8.7 fl (7.4-10.4); MONOCYTES % 10.5 % (2.0-8.0); NEUTROPHILS % 78.9 % (40.0-76.0); PLATELET 177 x1000/uL (130-400); RED BLOOD CELL COUNT 2.75 mill/uL (4.2-5.4); RED CELL DISTRIBUTION WIDTH 23.7 % (11.6-14.6)
[2021-09-30 09:55] LABS: HEMOGLOBIN. 6.3 g/dL (12.0-16.0)
[2021-09-30 09:56] LABS: HEMATOCRIT. 20.2 % (36.0-48.0)
[2021-09-30] MEDS: ACETAMINOPHEN 325MG TABLET PO PRN ×2 (15:28→22:22)
[2021-09-30] MEDS ORDERED: CEFTRIAXONE 1 G PREMIX 50 ML IV SCH (17:15)
[2021-09-30] MEDS: METHYLPREDNISOLONE SOD SUCC 40 MG/ML VIAL IV SCH ×2 (18:09→21:10)
[2021-09-30] MEDS ORDERED: AZITHROMYCIN 250 MG in DEXT 5% WATER 250 ML IV SCH (20:00)
[2021-09-30] MEDS: CEFTRIAXONE 1,000 MG in DEXTROSE 5% WATER 50 ML IV SCH (20:22)
[2021-09-30] MEDS: FAMOTIDINE 20MG TABLET PO SCH (20:22)
[2021-10-01] VITALS (11 sets, daily range): BP systolic 98–157; BP diastolic 50–83
[2021-10-01 01:36] LABS: HEMATOCRIT 22.8 % (36.0-48.0); HEMOGLOBIN 7.3 g/dL (12.0-16.0)
[2021-10-01] MEDS: ACETAMINOPHEN 325MG TABLET PO PRN (05:30)
[2021-10-01] MEDS: HYDRALAZINE HCL 50MG TABLET PO SCH ×3 (05:30→22:16)
[2021-10-01] MEDS: METHYLPREDNISOLONE SOD SUCC 40 MG/ML VIAL IV SCH ×3 (05:30→22:16)
[2021-10-01 08:47] LABS: HEMATOCRIT. 24.4 % (36.0-48.0); HEMOGLOBIN. 7.8 g/dL (12.0-16.0); MEAN CORPUSCULAR HEMOGLOBIN 23.7 pg (28.0-32.0); MEAN CORPUSCULAR VOLUME 74.7 fL (81.0-99.0); PLATELET 177 x1000/uL (130-400); RED BLOOD CELL COUNT 3.27 mill/uL (4.2-5.4); RED CELL DISTRIBUTION WIDTH 22.9 % (11.6-14.6)
[2021-10-01] MEDS: FERROUS SULFATE 325MG TABLET PO SCH ×3 (08:49→17:39)
[2021-10-01] MEDS: CARVEDILOL 6.25 MG TABLET PO SCH ×2 (08:51→20:51)
[2021-10-01 09:24] LABS: PLATELET ESTIMATE NORMAL
[2021-10-01] MEDS ORDERED: NALOXONE HCL 0.4MG/ML VIAL IV PRN (10:30)
[2021-10-01] MEDS: TRAMADOL 50MG TABLET PO PRN ×2 (11:15→19:29)
[2021-10-01 15:56] LABS: PROTHROMBIN TIME 10.6 sec (9.6-11.0)
[2021-10-01 16:14] LABS: TOTAL IRON BINDING CAPACITY 268 ug/dL (250-450)
[2021-10-01 16:27] LABS: FOLIC ACID (FOLATE) SERUM 5.6 ng/mL (>5.38)
[2021-10-01] MEDS ORDERED: LACTULOSE 20G/30ML UDC PO NR (17:00)
[2021-10-01] MEDS: CEFTRIAXONE 1,000 MG in DEXTROSE 5% WATER 50 ML IV SCH (17:39)
[2021-10-01] MEDS: FAMOTIDINE 20MG TABLET PO SCH (20:51)
[2021-10-01] MEDS: AZITHROMYCIN 250 MG TABLET PO SCH (22:16)
[2021-10-02] VITALS: BP 143/56
[2021-10-02 04:00] VITALS: BP 154/71
[2021-10-02] MEDS: HYDRALAZINE HCL 50MG TABLET PO SCH ×3 (05:25→21:04)
[2021-10-02] MEDS: METHYLPREDNISOLONE SOD SUCC 40 MG/ML VIAL IV SCH ×3 (05:25→21:03)
[2021-10-02 07:32] LABS: HEMATOCRIT 25.1 % (36.0-48.0); HEMOGLOBIN 8.3 g/dL (12.0-16.0); MEAN CORPUSCULAR HEMOGLOBIN 26.7 pg (28.0-32.0); MEAN CORPUSCULAR VOLUME 80.6 fL (81.0-99.0); PLATELET 163 x1000/uL (130-400); RED BLOOD CELL COUNT 3.11 mill/uL (4.2-5.4); RED CELL DISTRIBUTION WIDTH 23.7 % (11.6-14.6)
[2021-10-02 08:00] VITALS: BP 158/69
[2021-10-02] MEDS: FERROUS SULFATE 325MG TABLET PO SCH ×3 (08:26→16:15)
[2021-10-02] MEDS: ASPIRIN 81MG TABLET PO SCH (08:27)
[2021-10-02] MEDS: CARVEDILOL 6.25 MG TABLET PO SCH ×2 (08:27→21:03)
[2021-10-02] MEDS: CLOPIDOGREL 75MG TABLET PO SCH (08:27)
[2021-10-02 12:00] VITALS: BP 132/78
[2021-10-02] MEDS: TRAMADOL 50MG TABLET PO PRN (14:09)
[2021-10-02] MEDS ORDERED: POLYETHYLENE GLYCOL 3350 (17GM) 1 DOSE PACK PO NR (15:30)
[2021-10-02] MEDS ORDERED: BISACODYL 10MG SUPP PR NR (15:30)
[2021-10-02 16:00] VITALS: BP 171/78
[2021-10-02] MEDS: DOCUSATE SODIUM 100MG CAPSULE PO SCH (16:03)
[2021-10-02] MEDS: CLONIDINE 0.1MG TABLET PO PRN (17:47)
[2021-10-02] MEDS: CEFTRIAXONE 1,000 MG in DEXTROSE 5% WATER 50 ML IV SCH (17:47)
[2021-10-02 20:00] VITALS: BP 147/56
[2021-10-02] MEDS: FAMOTIDINE 20MG TABLET PO SCH (21:03)
[2021-10-02] MEDS: SENNOSIDES 8.6MG TABLET PO SCH (21:03)
[2021-10-02] MEDS: AZITHROMYCIN 250 MG TABLET PO SCH (21:04)
[2021-10-03] VITALS: BP 150/64
[2021-10-03 04:00] VITALS: BP 148/53
[2021-10-03] MEDS: FERROUS SULFATE 325MG TABLET PO SCH ×3 (06:27→17:37)
[2021-10-03] MEDS: METHYLPREDNISOLONE SOD SUCC 40 MG/ML VIAL IV SCH ×3 (06:27→22:11)
[2021-10-03] MEDS: HYDRALAZINE HCL 50MG TABLET PO SCH ×3 (06:27→22:11)
[2021-10-03 07:46] LABS: BASOPHILS % 0.6 % (0.0-2.0); HEMATOCRIT. 27.3 % (36.0-48.0); HEMOGLOBIN. 8.7 g/dL (12.0-16.0); LYMPHOCYTES % 11.9 % (20.0-50.0); MEAN CORPUSCULAR HEMOGLOBIN 24.6 pg (28.0-32.0); MEAN CORPUSCULAR VOLUME 77.6 fL (81.0-99.0); MEAN PLATELET VOLUME 9.4 fl (7.4-10.4); MONOCYTES % 8.9 % (2.0-8.0); NEUTROPHILS % 78.6 % (40.0-76.0); PLATELET 163 x1000/uL (130-400); RED BLOOD CELL COUNT 3.51 mill/uL (4.2-5.4); RED CELL DISTRIBUTION WIDTH 23.7 % (11.6-14.6)
[2021-10-03 08:00] VITALS: BP 159/69
[2021-10-03] MEDS: DOCUSATE SODIUM 100MG CAPSULE PO SCH ×2 (09:00→17:00)
[2021-10-03] MEDS: ASPIRIN 81MG TABLET PO SCH (09:09)
[2021-10-03] MEDS: CARVEDILOL 6.25 MG TABLET PO SCH ×2 (09:09→20:41)
[2021-10-03] MEDS: ASCORBIC ACID 500 MG TABLET PO SCH (09:10)
[2021-10-03] MEDS: CLOPIDOGREL 75MG TABLET PO SCH (09:41)
[2021-10-03 12:00] VITALS: BP 146/62
[2021-10-03 13:56] LABS: BG CARBOXYHEMOGLOBIN 0.4 % (0.5-1.5); BG DEOXYHEMOGLOBIN 1.8 % (0.0-5.0); BG FRACTION INSPIRED OXYGEN 28; BG HCO3 ACT 21.1 mmol/L (22.0-26.0); BG METHEMOGLOBIN 0.3 % (0.0-1.5); BG OXYGEN SATURATION 98.2 % (92.0-98.5); BG OXYHEMOGLOBIN 97.5 % (94.0-97.0); BG PCO2 34.2 mmHg (35.0-45.0); BG PH 7.409 (7.350-7.450); BG PO2 121.1 mmHg (75.0-100.0); BG SAMPLE SITE LEFT RADIAL; BG TOTAL HEMOGLOBIN 9.3 g/dL (12.0-18.0); BG VENT MODE NASAL CANNULA
[2021-10-03 16:00] VITALS: BP 153/64
[2021-10-03] MEDS: CEFTRIAXONE 1,000 MG in DEXTROSE 5% WATER 50 ML IV SCH (17:38)
[2021-10-03 19:56] VITALS: BP 160/65
[2021-10-03] MEDS: FAMOTIDINE 20MG TABLET PO SCH (20:41)
[2021-10-03] MEDS: AZITHROMYCIN 250 MG TABLET PO SCH (20:41)
[2021-10-03] MEDS: SENNOSIDES 8.6MG TABLET PO SCH ×2 (20:42→20:49)
[2021-10-04] VITALS (7 sets, daily range): BP systolic 106–183; BP diastolic 66–86
[2021-10-04] MEDS: HYDRALAZINE HCL 50MG TABLET PO SCH (06:08)
[2021-10-04] MEDS: METHYLPREDNISOLONE SOD SUCC 40 MG/ML VIAL IV SCH ×3 (06:08→22:18)
[2021-10-04 08:24] LABS: HEMOGLOBIN 8.6 g/dL (12.0-16.0); MEAN CORPUSCULAR HEMOGLOBIN 24.8 pg (28.0-32.0); MEAN CORPUSCULAR VOLUME 78.4 fL (81.0-99.0); PLATELET 158 x1000/uL (130-400); RED BLOOD CELL COUNT 3.44 mill/uL (4.2-5.4); RED CELL DISTRIBUTION WIDTH 23.4 % (11.6-14.6)
[2021-10-04 08:27] LABS: BASOPHILS % 0.5 % (0.0-2.0); HEMATOCRIT. 26.7 % (36.0-48.0); HEMOGLOBIN. 8.5 g/dL (12.0-16.0); LYMPHOCYTES % 10.8 % (20.0-50.0); MEAN CORPUSCULAR VOLUME 78.6 fL (81.0-99.0); MEAN PLATELET VOLUME 9.2 fl (7.4-10.4); MONOCYTES % 9.2 % (2.0-8.0); NEUTROPHILS % 79.5 % (40.0-76.0); PLATELET 160 x1000/uL (130-400); RED BLOOD CELL COUNT 3.39 mill/uL (4.2-5.4); RED CELL DISTRIBUTION WIDTH 23.4 % (11.6-14.6)
[2021-10-04] MEDS: CLOPIDOGREL 75MG TABLET PO SCH (08:59)
[2021-10-04] MEDS: DOCUSATE SODIUM 100MG CAPSULE PO SCH ×2 (08:59→16:16)
[2021-10-04] MEDS: ASPIRIN 81MG TABLET PO SCH (08:59)
[2021-10-04] MEDS: FERROUS SULFATE 325MG TABLET PO SCH ×3 (08:59→16:16)
[2021-10-04] MEDS: ASCORBIC ACID 500 MG TABLET PO SCH (08:59)
[2021-10-04] MEDS: CARVEDILOL 6.25 MG TABLET PO SCH ×2 (09:00→22:20)
[2021-10-04] MEDS: HYDRALAZINE HCL 100MG TABLET PO SCH ×3 (14:00→23:43)
[2021-10-04] MEDS: CEFTRIAXONE 1,000 MG in DEXTROSE 5% WATER 50 ML IV SCH (17:56)
[2021-10-04] MEDS: SENNOSIDES 8.6MG TABLET PO SCH (22:20)
[2021-10-04] MEDS: FAMOTIDINE 20MG TABLET PO SCH (22:20)
[2021-10-05] VITALS: BP 161/67
[2021-10-05 04:00] VITALS: BP 183/83
[2021-10-05] MEDS: HYDRALAZINE HCL 100MG TABLET PO SCH ×3 (05:36→20:55)
[2021-10-05] MEDS: METHYLPREDNISOLONE SOD SUCC 40 MG/ML VIAL IV SCH ×2 (05:36→13:01)
[2021-10-05] MEDS: CLONIDINE 0.1MG TABLET PO PRN (05:37)
[2021-10-05 08:00] VITALS: BP 158/63
[2021-10-05 08:02] LABS: HEMATOCRIT. 25.5 % (36.0-48.0); HEMOGLOBIN. 8.2 g/dL (12.0-16.0); MEAN CORPUSCULAR HEMOGLOBIN 24.8 pg (28.0-32.0); MEAN CORPUSCULAR VOLUME 77.1 fL (81.0-99.0); PLATELET 154 x1000/uL (130-400); RED BLOOD CELL COUNT 3.31 mill/uL (4.2-5.4); RED CELL DISTRIBUTION WIDTH 23.4 % (11.6-14.6)
[2021-10-05] MEDS: ASPIRIN 81MG TABLET PO SCH (08:38)
[2021-10-05] MEDS: CLOPIDOGREL 75MG TABLET PO SCH (08:38)
[2021-10-05] MEDS: ASCORBIC ACID 500 MG TABLET PO SCH (08:38)
[2021-10-05] MEDS: DOCUSATE SODIUM 100MG CAPSULE PO SCH ×2 (08:38→17:57)
[2021-10-05] MEDS: CARVEDILOL 6.25 MG TABLET PO SCH ×2 (08:38→20:55)
[2021-10-05] MEDS: FERROUS SULFATE 325MG TABLET PO SCH ×3 (08:38→17:57)
[2021-10-05 10:25] LABS: NUCLEATED RED BLOOD CELLS 1 /100 WBC
[2021-10-05 10:26] LABS: PLATELET ESTIMATE NORMAL
[2021-10-05 12:00] VITALS: BP 162/66
[2021-10-05 16:00] VITALS: BP 114/75
[2021-10-05] MEDS: FUROSEMIDE 40MG/4ML VIAL IVP SCH (17:57)
[2021-10-05] MEDS: LOSARTAN POTASSIUM 50 MG TABLET PO SCH (17:58)
[2021-10-05 20:00] VITALS: BP 160/66
[2021-10-05] MEDS: SENNOSIDES 8.6MG TABLET PO SCH (20:54)
[2021-10-05] MEDS: FAMOTIDINE 20MG TABLET PO SCH (20:55)
[2021-10-06] VITALS: BP 169/66
[2021-10-06] MEDS: CLONIDINE 0.1MG TABLET PO PRN (01:23)
[2021-10-06 04:00] VITALS: BP 169/66
[2021-10-06] MEDS: HYDRALAZINE HCL 100MG TABLET PO SCH ×2 (05:13→16:11)
[2021-10-06 07:51] LABS: BASOPHILS % 0.5 % (0.0-2.0); HEMATOCRIT. 27.7 % (36.0-48.0); HEMOGLOBIN. 8.4 g/dL (12.0-16.0); LYMPHOCYTES % 7.9 % (20.0-50.0); MEAN CORPUSCULAR HEMOGLOBIN 24.4 pg (28.0-32.0); MEAN CORPUSCULAR VOLUME 80.4 fL (81.0-99.0); MEAN PLATELET VOLUME 9.2 fl (7.4-10.4); MONOCYTES % 9.2 % (2.0-8.0); NEUTROPHILS % 82.4 % (40.0-76.0); PLATELET 132 x1000/uL (130-400); RED BLOOD CELL COUNT 3.44 mill/uL (4.2-5.4); RED CELL DISTRIBUTION WIDTH 24.2 % (11.6-14.6)
[2021-10-06 08:00] VITALS: BP 134/56
[2021-10-06] MEDS: FUROSEMIDE 40MG/4ML VIAL IVP SCH (09:18)
[2021-10-06] MEDS: FERROUS SULFATE 325MG TABLET PO SCH ×3 (10:19→17:48)
[2021-10-06] MEDS: DOCUSATE SODIUM 100MG CAPSULE PO SCH ×2 (10:20→17:48)
[2021-10-06] MEDS: CARVEDILOL 6.25 MG TABLET PO SCH (10:20)
[2021-10-06] MEDS: PREDNISONE 20MG TABLET PO SCH (10:20)
[2021-10-06] MEDS: LOSARTAN POTASSIUM 50 MG TABLET PO SCH (10:20)
[2021-10-06] MEDS: ASCORBIC ACID 500 MG TABLET PO SCH (10:21)
[2021-10-06] MEDS: CLOPIDOGREL 75MG TABLET PO SCH (10:21)
[2021-10-06] MEDS: ASPIRIN 81MG TABLET PO SCH (10:21)
[2021-10-06] MEDS ORDERED: POTASSIUM CHLORIDE 20MEQ TABLET SR PO NR (11:30)
[2021-10-06 12:00] VITALS: BP 173/67
[2021-10-06 16:00] VITALS: BP 157/55
[2021-10-06 20:00] VITALS: BP 166/53
[2021-10-07] VITALS: BP 181/73
[2021-10-07] MEDS: HYDRALAZINE HCL 100MG TABLET PO SCH ×4 (00:43→22:10)
[2021-10-07] MEDS: CARVEDILOL 6.25 MG TABLET PO SCH ×3 (00:43→22:10)
[2021-10-07] MEDS: SENNOSIDES 8.6MG TABLET PO SCH ×2 (00:43→22:11)
[2021-10-07] MEDS: FAMOTIDINE 20MG TABLET PO SCH ×2 (00:43→22:11)
[2021-10-07 04:00] VITALS: BP 169/68
[2021-10-07 06:35] LABS: HEMATOCRIT. 26.7 % (36.0-48.0); HEMOGLOBIN. 8.9 g/dL (12.0-16.0); MEAN CORPUSCULAR HEMOGLOBIN 26.2 pg (28.0-32.0); MEAN CORPUSCULAR VOLUME 79.1 fL (81.0-99.0); MEAN PLATELET VOLUME 9.2 fl (7.4-10.4); PLATELET 143 x1000/uL (130-400); RED BLOOD CELL COUNT 3.38 mill/uL (4.2-5.4); RED CELL DISTRIBUTION WIDTH 24.1 % (11.6-14.6)
[2021-10-07] MEDS: FERROUS SULFATE 325MG TABLET PO SCH ×3 (06:51→17:13)
[2021-10-07 08:00] VITALS: BP 157/58
[2021-10-07] MEDS: DOCUSATE SODIUM 100MG CAPSULE PO SCH ×2 (08:46→17:13)
[2021-10-07] MEDS: ASPIRIN 81MG TABLET PO SCH (08:46)
[2021-10-07] MEDS: ASCORBIC ACID 500 MG TABLET PO SCH (08:46)
[2021-10-07] MEDS: PREDNISONE 20MG TABLET PO SCH (08:46)
[2021-10-07] MEDS: CLOPIDOGREL 75MG TABLET PO SCH (08:46)
[2021-10-07] MEDS: LOSARTAN POTASSIUM 50 MG TABLET PO SCH (08:46)
[2021-10-07] MEDS: FUROSEMIDE 40MG/4ML VIAL IVP SCH ×2 (08:47→08:50)
[2021-10-07 10:43] LABS: BG CARBOXYHEMOGLOBIN 0.2 % (0.5-1.5); BG DEOXYHEMOGLOBIN 3.9 % (0.0-5.0); BG FRACTION INSPIRED OXYGEN 21; BG METHEMOGLOBIN 0.2 % (0.0-1.5); BG OXYGEN SATURATION 96.1 % (92.0-98.5); BG OXYHEMOGLOBIN 95.7 % (94.0-97.0); BG PCO2 37.9 mmHg (35.0-45.0); BG PH 7.454 (7.350-7.450); BG PO2 84.4 mmHg (75.0-100.0); BG SAMPLE SITE RIGHT RADIAL; BG TOTAL HEMOGLOBIN 9.8 g/dL (12.0-18.0); BG VENT MODE ROOM AIR
[2021-10-07 12:00] VITALS: BP 159/61
[2021-10-07 20:00] VITALS: BP 156/76
[2021-10-07 20:00] LABS: PLATELET ESTIMATE NORMAL
[2021-10-08] VITALS: BP 150/54
[2021-10-08 04:00] VITALS: BP 131/68
[2021-10-08] MEDS: HYDRALAZINE HCL 100MG TABLET PO SCH ×3 (06:27→21:42)
[2021-10-08 08:00] VITALS: BP 159/64
[2021-10-08] MEDS: DOCUSATE SODIUM 100MG CAPSULE PO SCH ×3 (08:54→16:18)
[2021-10-08] MEDS: ASCORBIC ACID 500 MG TABLET PO SCH (08:54)
[2021-10-08] MEDS: ASPIRIN 81MG TABLET PO SCH (08:54)
[2021-10-08] MEDS: PREDNISONE 20MG TABLET PO SCH (08:55)
[2021-10-08] MEDS: LOSARTAN POTASSIUM 50 MG TABLET PO SCH (08:55)
[2021-10-08] MEDS: CLOPIDOGREL 75MG TABLET PO SCH (08:55)
[2021-10-08] MEDS: FERROUS SULFATE 325MG TABLET PO SCH ×3 (08:55→16:27)
[2021-10-08] MEDS: CARVEDILOL 6.25 MG TABLET PO SCH ×2 (08:55→21:41)
[2021-10-08] MEDS: FUROSEMIDE 40MG TABLET PO SCH (09:00)
[2021-10-08 11:16] LABS: BASOPHILS % 1.4 % (0.0-2.0); EOSINOPHILS % 0.2 % (0.0-5.0); HEMATOCRIT. 30.5 % (36.0-48.0); HEMOGLOBIN. 9.6 g/dL (12.0-16.0); MEAN CORPUSCULAR HEMOGLOBIN 24.6 pg (28.0-32.0); MEAN CORPUSCULAR VOLUME 78.3 fL (81.0-99.0); MONOCYTES % 8.5 % (2.0-8.0); NEUTROPHILS % 81.9 % (40.0-76.0); PLATELET 161 x1000/uL (130-400); RED CELL DISTRIBUTION WIDTH 23.9 % (11.6-14.6)
[2021-10-08 11:37] LABS: PHOSPHORUS 2.4 mg/dL (2.5-4.9)
[2021-10-08 12:00] VITALS: BP 162/53
[2021-10-08 16:00] VITALS: BP 165/56
[2021-10-08] MEDS: CLONIDINE 0.1MG TABLET PO PRN (16:28)
[2021-10-08] MEDS ORDERED: SENN-257 PO (18:19)
[2021-10-08] MEDS ORDERED: COR6 PO (18:19)
[2021-10-08] MEDS ORDERED: LOSA50TA3 PO (18:19)
[2021-10-08] MEDS ORDERED: FAMO20TA8 PO (18:19)
[2021-10-08] MEDS ORDERED: FERR-63 PO (18:19)
[2021-10-08] MEDS ORDERED: CLOP75TA15 PO (18:19)
[2021-10-08] MEDS ORDERED: ASCO500T20 PO (18:19)
[2021-10-08] MEDS ORDERED: HYDR100T26 PO (18:19)
[2021-10-08] MEDS ORDERED: FURO-151 MT (18:19)
[2021-10-08 20:00] VITALS: BP_SYST 155; BP_SYST 156; BP_DIAS 78; BP_DIAS 93
[2021-10-08] MEDS: FAMOTIDINE 20MG TABLET PO SCH (21:41)
[2021-10-08] MEDS: SENNOSIDES 8.6MG TABLET PO SCH (21:42)
[2021-10-09] VITALS: BP 152/53
[2021-10-09 04:37] VITALS: BP 149/47
[2021-10-09] MEDS: FERROUS SULFATE 325MG TABLET PO SCH ×3 (06:29→17:31)
[2021-10-09] MEDS: HYDRALAZINE HCL 100MG TABLET PO SCH ×2 (06:30→15:06)
[2021-10-09 07:20] LABS: BASOPHILS % 0.9 % (0.0-2.0); EOSINOPHILS % 0.5 % (0.0-5.0); HEMATOCRIT. 27.6 % (36.0-48.0); LYMPHOCYTES % 11.9 % (20.0-50.0); MEAN CORPUSCULAR HEMOGLOBIN 25.3 pg (28.0-32.0); MEAN CORPUSCULAR VOLUME 77.6 fL (81.0-99.0); MEAN PLATELET VOLUME 9.1 fl (7.4-10.4); MONOCYTES % 8.1 % (2.0-8.0); NEUTROPHILS % 78.6 % (40.0-76.0); PLATELET 148 x1000/uL (130-400); RED BLOOD CELL COUNT 3.56 mill/uL (4.2-5.4)
[2021-10-09 07:55] LABS: PHOSPHORUS 2.7 mg/dL (2.5-4.9)
[2021-10-09 08:00] VITALS: BP 158/49
[2021-10-09] MEDS: LOSARTAN POTASSIUM 50 MG TABLET PO SCH (09:12)
[2021-10-09] MEDS: FUROSEMIDE 40MG TABLET PO SCH (09:12)
[2021-10-09] MEDS: CARVEDILOL 6.25 MG TABLET PO SCH (09:13)
[2021-10-09] MEDS: ASCORBIC ACID 500 MG TABLET PO SCH (09:13)
[2021-10-09] MEDS: DOCUSATE SODIUM 100MG CAPSULE PO SCH ×2 (09:13→16:36)
[2021-10-09] MEDS: CLOPIDOGREL 75MG TABLET PO SCH (09:13)
[2021-10-09] MEDS: PREDNISONE 20MG TABLET PO SCH (09:13)
[2021-10-09] MEDS: ASPIRIN 81MG TABLET PO SCH (09:13)
[2021-10-09 12:00] VITALS: BP 168/65
[2021-10-09 15:55] VITALS: BP 168/65
[2021-10-09 16:00] VITALS: BP 161/57
== END 2021-10-09 18:15 | disposition home health service (06) | DRG 871 ==
LOC: ER 12:17 → EDBEDREQ 12:29 → MICUSO 16:19 → EDBEDREQSVC 16:20 → EDBEDREQ 16:20 → EDBEDREQTM 16:20 → MICUSO 22:12 → UNDOADMIN 22:12 → 5WST 09-30 10:14
PROVIDERS: ADMIT Internal Medicine Pulmonary Disease; ATTEND Internal Medicine Pulmonary Disease
PROC: 5A09357 Assistance with Respiratory Ventilation, Less than 24 Consecutive Hours, Continuous Positive Airway Pressure (ICD-10-PCS; principal; 2021-09-29)
PROC: 30233N1 Transfusion of Nonautologous Red Blood Cells into Peripheral Vein, Percutaneous Approach (ICD-10-PCS; 2021-09-30)
DX: A41.9 Sepsis, unspecified organism (principal); J18.9 Pneumonia, unspecified organism; J96.01 Acute respiratory failure with hypoxia; I50.23 Acute on chronic systolic (congestive) heart failure; J44.1 Chronic obstructive pulmonary disease with (acute) exacerbation; I13.0 Hypertensive heart and chronic kidney disease with heart failure and stage 1 through stage 4 chronic kidney disease, or unspecified chronic kidney disease; J44.0 Chronic obstructive pulmonary disease with (acute) lower respiratory infection; E44.1 Mild protein-calorie malnutrition; N17.9 Acute kidney failure, unspecified; F17.200 Nicotine dependence, unspecified, uncomplicated; D64.9 Anemia, unspecified; E87.8 Other disorders of electrolyte and fluid balance, not elsewhere classified; I27.20 Pulmonary hypertension, unspecified; N18.30 Chronic kidney disease, stage 3 unspecified; Z20.822 Contact with and (suspected) exposure to COVID-19; E87.6 Hypokalemia; I25.10 Atherosclerotic heart disease of native coronary artery without angina pectoris; D50.9 Iron deficiency anemia, unspecified; Z82.49 Family history of ischemic heart disease and other diseases of the circulatory system; Z86.73 Personal history of transient ischemic attack (TIA), and cerebral infarction without residual deficits; Z90.710 Acquired absence of both cervix and uterus; Z95.5 Presence of coronary angioplasty implant and graft; Z79.84 Long term (current) use of oral hypoglycemic drugs; Z79.899 Other long term (current) drug therapy; Z79.02 Long term (current) use of antithrombotics/antiplatelets; Z79.82 Long term (current) use of aspirin; Z68.22 Body mass index [BMI] 22.0-22.9, adult; R79.89 Other specified abnormal findings of blood chemistry
CPT/HCPCS: 36415; 36600; 71045; 71250; 76770; 80048; 80053; 81003; 82270; 82375; 82607; 82728; 82746; 82805; 83036; 83540; 83550; 83735; 83880; 84100; 84484; 85014; 85018; 85025; 85027; 85044; 85379; 86850; 86900; 86920; 87070; 87426; 93005; 93970; 94618; 94640; 94660; 99291; C1893; J0456; J0696; J1940; J2920; J2930; J3475; J7040; J7060; J7070; J7512; P9016; A4315

== ENCOUNTER 2021-12-09 09:23 | Inpatient (IN) | payer MEDICARE, MEDICAID ==
[~2021-12-09] VITALS: Ht 162.6 cm; Wt 62.1 kg
[~2021-12-09 09:23] MED LIST changes: +ASCO500T20 PO; +CLOP75TA15 PO; +FAMO20TA8 PO; +HYDR100T26 PO; +LOSA50TA3 PO; +SENN-257 PO
[2021-12-09 10:19] LABS: BASOPHILS % 0.9 % (0.0-2.0); HEMATOCRIT. 23.9 % (36.0-48.0); HEMOGLOBIN. 7.4 g/dL (12.0-16.0); LYMPHOCYTES % 10.6 % (20.0-50.0); MEAN CORPUSCULAR VOLUME 87.1 fL (81.0-99.0); MEAN PLATELET VOLUME 8.7 fl (7.4-10.4); MONOCYTES % 7.8 % (2.0-8.0); NEUTROPHILS % 79.7 % (40.0-76.0); PLATELET 184 x1000/uL (130-400); RED BLOOD CELL COUNT 2.75 mill/uL (4.2-5.4); RED CELL DISTRIBUTION WIDTH 14.6 % (11.6-14.6)
[2021-12-09 10:23] LABS: CHLORIDE 114 mEq/L (98-107)
[2021-12-09] MEDS ORDERED: POTASSIUM CHLORIDE INJ 40 MEQ in DEXT 5% WATER 250 ML IV ONE (11:15)
[2021-12-09] MEDS ORDERED: POTASSIUM CHLORIDE 20MEQ TABLET SR PO ONE (11:15)
[2021-12-09] MEDS ORDERED: POTASSIUM CHLORIDE INJ 40 MEQ in DEXT 5% WATER 500 ML IV SCH (12:45)
[2021-12-09] MEDS ORDERED: POTASSIUM CHLORIDE 20MEQ TABLET SR PO SCH (12:45)
[2021-12-09 16:00] VITALS: BP 154/79
[2021-12-09 16:30] VITALS: BP 154/79
[2021-12-09] MEDS ORDERED: ONDANSETRON HCL 4MG/2ML INJ IV PRN (17:15)
[2021-12-09] MEDS ORDERED: ACETAMINOPHEN 325MG TABLET PO PRN (17:15)
[2021-12-09] MEDS ORDERED: DOCUSATE SODIUM 100MG CAPSULE PO PRN (17:15)
[2021-12-09] MEDS ORDERED: CLONIDINE 0.1MG TABLET PO PRN (17:15)
[2021-12-09] MEDS ORDERED: PIPERACILLIN/TAZOBACTAM 3.375 G in DEXTROSE 5% WATER 50 ML IV SCH (18:30)
[2021-12-09] MEDS: FERROUS SULFATE 325MG TABLET PO SCH (19:03)
[2021-12-09 20:00] VITALS: BP 117/70
[2021-12-09] MEDS: GABAPENTIN 300MG CAPSULE PO SCH (20:56)
[2021-12-09] MEDS: LIDOCAINE 5% PATCH TOP SCH (20:57)
[2021-12-09] MEDS: CARVEDILOL 6.25 MG TABLET PO SCH (20:59)
[2021-12-09] MEDS: PANTOPRAZOLE 40MG DR TABLET PO SCH (21:00)
[2021-12-09] MEDS ORDERED: FAMOTIDINE(NEO) 1MG/ML SUSP PO SCH (21:00)
[2021-12-09] MEDS: SENNOSIDES 8.6MG TABLET PO SCH (21:00)
[2021-12-09] MEDS: HYDRALAZINE HCL 100MG TABLET PO SCH (21:49)
[2021-12-10] MEDS: PIPERACILLIN/TAZOBACTAM 3.375 G in DEXTROSE 5% WATER 50 ML IV SCH ×3 (00:25→21:20)
[2021-12-10 01:11] VITALS: BP 153/64
[2021-12-10 06:03] VITALS: BP 170/89
[2021-12-10] MEDS ORDERED: FUROSEMIDE 40MG/4ML VIAL IVP SCH (06:15)
[2021-12-10] MEDS: HYDRALAZINE HCL 100MG TABLET PO SCH ×3 (06:33→21:22)
[2021-12-10] MEDS: PANTOPRAZOLE 40MG DR TABLET PO SCH ×2 (06:35→21:21)
[2021-12-10 06:41] LABS: BG BASE EXCESS -6.7 mmol/L (-2.0-2.0); BG CARBOXYHEMOGLOBIN 0.9 % (0.5-1.5); BG DEOXYHEMOGLOBIN 3.5 % (0.0-5.0); BG FRACTION INSPIRED OXYGEN 44; BG HCO3 ACT 18.9 mmol/L (22.0-26.0); BG METHEMOGLOBIN 0.4 % (0.0-1.5); BG OXYGEN SATURATION 96.5 % (92.0-98.5); BG OXYHEMOGLOBIN 95.2 % (94.0-97.0); BG PCO2 37.9 mmHg (35.0-45.0); BG PH 7.315 (7.350-7.450); BG PO2 93.1 mmHg (75.0-100.0); BG SAMPLE SITE RIGHT RADIAL; BG TOTAL HEMOGLOBIN 8.8 g/dL (12.0-18.0); BG VENT MODE MASK - SIMPLE
[2021-12-10 08:00] VITALS: BP 146/60
[2021-12-10] MEDS: POTASSIUM CHLORIDE 20MEQ TABLET SR PO SCH (08:43)
[2021-12-10] MEDS: CLOPIDOGREL 75MG TABLET PO SCH (08:43)
[2021-12-10] MEDS: LOSARTAN POTASSIUM 50 MG TABLET PO SCH (08:44)
[2021-12-10] MEDS: FUROSEMIDE 40MG TABLET PO SCH (08:44)
[2021-12-10] MEDS: CARVEDILOL 6.25 MG TABLET PO SCH ×2 (08:44→21:21)
[2021-12-10] MEDS: GABAPENTIN 300MG CAPSULE PO SCH ×3 (08:44→17:18)
[2021-12-10] MEDS: FERROUS SULFATE 325MG TABLET PO SCH ×3 (08:44→17:18)
[2021-12-10] MEDS: ASCORBIC ACID 500 MG TABLET PO SCH (08:44)
[2021-12-10] MEDS ORDERED: HYDRALAZINE HCL 50MG TABLET PO SCH (09:00)
[2021-12-10] MEDS ORDERED: IPRATROPIUM/ALBUTEROL 0.5-3(2.5)MG/3ML NEB HHN PRN (09:45)
[2021-12-10 11:50] LABS: HEMOGLOBIN. 8.2 g/dL (12.0-16.0); MEAN CORPUSCULAR VOLUME 88.8 fL (81.0-99.0); MEAN PLATELET VOLUME 8.8 fl (7.4-10.4); PLATELET 176 x1000/uL (130-400); RED BLOOD CELL COUNT 3.04 mill/uL (4.2-5.4)
[2021-12-10 12:00] VITALS: BP 154/67
[2021-12-10] MEDS ORDERED: METHYLPREDNISOLONE SOD SUCC 40 MG/ML VIAL IV SCH (13:00)
[2021-12-10 14:27] LABS: PLATELET ESTIMATE NORMAL
[2021-12-10 16:00] VITALS: BP 126/47
[2021-12-10 20:00] VITALS: BP 122/50
[2021-12-10] MEDS: SENNOSIDES 8.6MG TABLET PO SCH ×2 (21:00→21:21)
[2021-12-10] MEDS: LIDOCAINE 5% PATCH TOP SCH (21:20)
[2021-12-11] VITALS: BP 115/47
[2021-12-11 04:00] VITALS: BP 104/66
[2021-12-11] MEDS: HYDRALAZINE HCL 100MG TABLET PO SCH ×3 (05:13→20:58)
[2021-12-11] MEDS: FERROUS SULFATE 325MG TABLET PO SCH ×3 (06:42→16:37)
[2021-12-11] MEDS: PANTOPRAZOLE 40MG DR TABLET PO SCH ×2 (06:42→20:58)
[2021-12-11 07:23] LABS: BASOPHILS % 1.2 % (0.0-2.0); EOSINOPHILS % 0.2 % (0.0-5.0); HEMATOCRIT. 22.9 % (36.0-48.0); HEMOGLOBIN. 7.2 g/dL (12.0-16.0); LYMPHOCYTES % 15.4 % (20.0-50.0); MEAN CORPUSCULAR HEMOGLOBIN 28.8 pg (28.0-32.0); MEAN PLATELET VOLUME 8.9 fl (7.4-10.4); MONOCYTES % 9.2 % (2.0-8.0); PLATELET 139 x1000/uL (130-400); RED BLOOD CELL COUNT 2.49 mill/uL (4.2-5.4)
[2021-12-11 08:00] VITALS: BP 124/53
[2021-12-11] MEDS: PIPERACILLIN/TAZOBACTAM 3.375 G in DEXTROSE 5% WATER 50 ML IV SCH ×2 (08:42→20:58)
[2021-12-11] MEDS: ASCORBIC ACID 500 MG TABLET PO SCH (08:42)
[2021-12-11] MEDS: POTASSIUM CHLORIDE 20MEQ TABLET SR PO SCH (08:42)
[2021-12-11] MEDS: GABAPENTIN 300MG CAPSULE PO SCH ×3 (08:42→16:37)
[2021-12-11] MEDS: LOSARTAN POTASSIUM 50 MG TABLET PO SCH (08:42)
[2021-12-11] MEDS: FUROSEMIDE 40MG TABLET PO SCH (08:42)
[2021-12-11] MEDS: CLOPIDOGREL 75MG TABLET PO SCH (08:42)
[2021-12-11] MEDS: CARVEDILOL 6.25 MG TABLET PO SCH ×2 (08:43→20:58)
[2021-12-11 12:00] VITALS: BP 116/51
[2021-12-11 16:00] VITALS: BP 132/60
[2021-12-11 20:00] VITALS: BP 127/52
[2021-12-11] MEDS: SENNOSIDES 8.6MG TABLET PO SCH (20:30)
[2021-12-11] MEDS: LIDOCAINE 5% PATCH TOP SCH (20:58)
[2021-12-12] VITALS (10 sets, daily range): BP systolic 119–151; BP diastolic 47–78
[2021-12-12] MEDS: PANTOPRAZOLE 40MG DR TABLET PO SCH (05:53)
[2021-12-12] MEDS: HYDRALAZINE HCL 100MG TABLET PO SCH ×3 (05:54→21:00)
[2021-12-12 07:31] LABS: BASOPHILS % 0.9 % (0.0-2.0); EOSINOPHILS % 2.3 % (0.0-5.0); HEMATOCRIT. 22.7 % (36.0-48.0); MEAN CORPUSCULAR HEMOGLOBIN 27.7 pg (28.0-32.0); MEAN CORPUSCULAR VOLUME 89.4 fL (81.0-99.0); MEAN PLATELET VOLUME 8.9 fl (7.4-10.4); MONOCYTES % 8.8 % (2.0-8.0); PLATELET 141 x1000/uL (130-400); RED BLOOD CELL COUNT 2.54 mill/uL (4.2-5.4)
[2021-12-12] MEDS: CARVEDILOL 6.25 MG TABLET PO SCH (08:53)
[2021-12-12] MEDS: CLOPIDOGREL 75MG TABLET PO SCH (08:54)
[2021-12-12] MEDS: POTASSIUM CHLORIDE 20MEQ TABLET SR PO SCH (09:18)
[2021-12-12] MEDS: LOSARTAN POTASSIUM 50 MG TABLET PO SCH (09:18)
[2021-12-12] MEDS: FUROSEMIDE 40MG TABLET PO SCH (09:18)
[2021-12-12] MEDS: ASCORBIC ACID 500 MG TABLET PO SCH (09:18)
[2021-12-12] MEDS: PIPERACILLIN/TAZOBACTAM 3.375 G in DEXTROSE 5% WATER 50 ML IV SCH ×2 (09:24→20:30)
[2021-12-12] MEDS: GABAPENTIN 300MG CAPSULE PO SCH ×3 (10:28→17:12)
[2021-12-12] MEDS: FERROUS SULFATE 325MG TABLET PO SCH ×3 (10:28→17:12)
[2021-12-12 15:12] LABS: TOTAL IRON BINDING CAPACITY 205 ug/dL (250-450)
[2021-12-12] MEDS ORDERED: SENNOSIDES 8.6MG TABLET PO PRN (16:15)
[2021-12-12] MEDS: PANTOPRAZOLE SODIUM 40 MG/VIAL IV SCH (17:12)
[2021-12-12 20:23] LABS: HEMOGLOBIN 8.5 g/dL (12.0-16.0)
[2021-12-12 20:30] LABS: PROTHROMBIN TIME 10.9 sec (9.6-11.0)
[2021-12-12] MEDS: CARVEDILOL 3.125 MG TABLET PO SCH (20:59)
[2021-12-12] MEDS: LIDOCAINE 5% PATCH TOP SCH (21:00)
[2021-12-12] MEDS ORDERED: EPOETIN ALFA-EPBX 10,000 UNIT/ML VIAL SUBCUT SCH (21:00)
[2021-12-12] MEDS: SENNOSIDES 8.6MG TABLET PO SCH (21:00)
[2021-12-13] VITALS: BP 130/53
[2021-12-13 04:44] VITALS: BP 144/51
[2021-12-13] MEDS: HYDRALAZINE HCL 100MG TABLET PO SCH ×3 (06:38→21:08)
[2021-12-13 08:02] VITALS: BP 155/56
[2021-12-13] MEDS: CLOPIDOGREL 75MG TABLET PO SCH (09:00)
[2021-12-13] MEDS: DOCUSATE SODIUM 250MG CAPSULE PO SCH (09:00)
[2021-12-13] MEDS: CARVEDILOL 3.125 MG TABLET PO SCH ×2 (09:00→21:03)
[2021-12-13] MEDS: PANTOPRAZOLE SODIUM 40 MG/VIAL IV SCH ×2 (09:11→17:44)
[2021-12-13] MEDS: FERROUS SULFATE 325MG TABLET PO SCH ×3 (09:11→17:44)
[2021-12-13] MEDS: ASCORBIC ACID 500 MG TABLET PO SCH (09:11)
[2021-12-13] MEDS: GABAPENTIN 300MG CAPSULE PO SCH ×3 (09:11→17:44)
[2021-12-13] MEDS: PIPERACILLIN/TAZOBACTAM 3.375 G in DEXTROSE 5% WATER 50 ML IV SCH ×2 (09:16→21:02)
[2021-12-13 10:02] LABS: PROTHROMBIN TIME 11.1 sec (9.6-11.0)
[2021-12-13 10:03] LABS: HEMATOCRIT. 26.7 % (36.0-48.0); HEMOGLOBIN. 8.5 g/dL (12.0-16.0); MEAN CORPUSCULAR HEMOGLOBIN 27.5 pg (28.0-32.0); MEAN CORPUSCULAR VOLUME 85.9 fL (81.0-99.0); MEAN PLATELET VOLUME 8.8 fl (7.4-10.4); PLATELET 141 x1000/uL (130-400); RED BLOOD CELL COUNT 3.11 mill/uL (4.2-5.4); RED CELL DISTRIBUTION WIDTH 14.4 % (11.6-14.6)
[2021-12-13 10:05] LABS: CHLORIDE 114 mEq/L (98-107)
[2021-12-13 10:20] LABS: HAPTOGLOBIN 78 mg/dL (30-200); PHOSPHORUS 4.6 mg/dL (2.5-4.9)
[2021-12-13 10:30] LABS: PLATELET ESTIMATE NORMAL
[2021-12-13 12:03] VITALS: BP 103/58
[2021-12-13 16:22] VITALS: BP 155/62
[2021-12-13 20:00] VITALS: BP 154/67
[2021-12-13] MEDS: SENNOSIDES 8.6MG TABLET PO SCH (21:03)
[2021-12-13] MEDS: LIDOCAINE 5% PATCH TOP SCH (21:04)
[2021-12-14] VITALS: BP 133/56
[2021-12-14 04:00] VITALS: BP 141/59
[2021-12-14] MEDS: HYDRALAZINE HCL 100MG TABLET PO SCH ×3 (06:07→21:45)
[2021-12-14 07:48] LABS: BASOPHILS % 0.8 % (0.0-2.0); EOSINOPHILS % 2.3 % (0.0-5.0); HEMATOCRIT. 27.9 % (36.0-48.0); HEMOGLOBIN. 8.6 g/dL (12.0-16.0); LYMPHOCYTES % 11.8 % (20.0-50.0); MEAN CORPUSCULAR HEMOGLOBIN 27.2 pg (28.0-32.0); MEAN CORPUSCULAR VOLUME 88.2 fL (81.0-99.0); MEAN PLATELET VOLUME 9.1 fl (7.4-10.4); MONOCYTES % 8.9 % (2.0-8.0); NEUTROPHILS % 76.2 % (40.0-76.0); PLATELET 145 x1000/uL (130-400); RED BLOOD CELL COUNT 3.17 mill/uL (4.2-5.4); RED CELL DISTRIBUTION WIDTH 15.1 % (11.6-14.6)
[2021-12-14 08:00] VITALS: BP 144/54
[2021-12-14] MEDS: ASCORBIC ACID 500 MG TABLET PO SCH (08:20)
[2021-12-14] MEDS: FERROUS SULFATE 325MG TABLET PO SCH ×3 (08:20→17:52)
[2021-12-14] MEDS: GABAPENTIN 300MG CAPSULE PO SCH ×3 (08:20→17:52)
[2021-12-14] MEDS: DOCUSATE SODIUM 250MG CAPSULE PO SCH (08:20)
[2021-12-14] MEDS: CARVEDILOL 3.125 MG TABLET PO SCH ×2 (08:20→21:47)
[2021-12-14] MEDS: PANTOPRAZOLE SODIUM 40 MG/VIAL IV SCH ×2 (08:21→17:52)
[2021-12-14 08:25] LABS: PHOSPHORUS 4.2 mg/dL (2.5-4.9)
[2021-12-14] MEDS: PIPERACILLIN/TAZOBACTAM 3.375 G in DEXTROSE 5% WATER 50 ML IV SCH (09:59)
[2021-12-14 12:00] VITALS: BP 155/57
[2021-12-14 12:48] LABS: CLARITY URINE CLEAR (CLEAR); COLOR URINE YELLOW (YELLOW); KETONES URINE NEGATIVE (NEGATIVE); LEUKOCYTE ESTERASE URINE NEGATIVE (NEGATIVE); NITRITE URINE NEGATIVE (NEGATIVE); OCCULT BLOOD URINE NEGATIVE (NEGATIVE); PROTEIN URINE TRACE (NEGATIVE); SPECIFIC GRAVITY URINE 1.014 (1.005-1.030); UROBILINOGEN URINE 0.2 E.U./dL (0.2-1.0)
[2021-12-14 16:00] VITALS: BP 155/55
[2021-12-14 20:00] VITALS: BP 150/61
[2021-12-14] MEDS: IPRATROPIUM/ALBUTEROL 0.5-3(2.5)MG/3ML NEB HHN SCH (21:18)
[2021-12-14] MEDS: SENNOSIDES 8.6MG TABLET PO SCH (21:44)
[2021-12-14] MEDS: LIDOCAINE 5% PATCH TOP SCH (21:46)
[2021-12-15] VITALS: BP 143/53
[2021-12-15] MEDS: IPRATROPIUM/ALBUTEROL 0.5-3(2.5)MG/3ML NEB HHN SCH ×3 (01:53→15:27)
[2021-12-15 04:00] VITALS: BP 146/54
[2021-12-15 06:07] LABS: *CREATININE RANDOM URINE 76.2 mg/dL (Not Estab.); MICROALBUMIN RANDOM URINE 36.7 ug/mL (Not Estab.)
[2021-12-15] MEDS: HYDRALAZINE HCL 100MG TABLET PO SCH ×2 (06:07→14:54)
[2021-12-15 07:47] LABS: PROTHROMBIN TIME 10.9 sec (9.6-11.0)
[2021-12-15 07:50] LABS: BASOPHILS % 0.5 % (0.0-2.0); EOSINOPHILS % 2.4 % (0.0-5.0); HEMATOCRIT. 26.2 % (36.0-48.0); HEMOGLOBIN. 8.2 g/dL (12.0-16.0); LYMPHOCYTES % 18.4 % (20.0-50.0); MEAN CORPUSCULAR VOLUME 85.8 fL (81.0-99.0); MEAN PLATELET VOLUME 9.2 fl (7.4-10.4); MONOCYTES % 9.9 % (2.0-8.0); NEUTROPHILS % 68.8 % (40.0-76.0); PLATELET 134 x1000/uL (130-400); RED BLOOD CELL COUNT 3.05 mill/uL (4.2-5.4); RED CELL DISTRIBUTION WIDTH 14.8 % (11.6-14.6)
[2021-12-15] MEDS: FERROUS SULFATE 325MG TABLET PO SCH ×3 (07:50→17:51)
[2021-12-15 08:00] VITALS: BP 152/73
[2021-12-15 08:49] LABS: CHLORIDE 114 mEq/L (98-107)
[2021-12-15] MEDS: DOCUSATE SODIUM 250MG CAPSULE PO SCH (09:00)
[2021-12-15] MEDS: GABAPENTIN 300MG CAPSULE PO SCH ×3 (09:00→17:51)
[2021-12-15] MEDS: CARVEDILOL 3.125 MG TABLET PO SCH ×2 (09:00→12:44)
[2021-12-15] MEDS: ASCORBIC ACID 500 MG TABLET PO SCH (09:00)
[2021-12-15] MEDS: PANTOPRAZOLE SODIUM 40 MG/VIAL IV SCH ×2 (09:27→17:51)
[2021-12-15 12:00] VITALS: BP 173/68
[2021-12-15 16:00] VITALS: BP 158/57
[2021-12-15] MEDS ORDERED: OMEP40CA20 MT (17:19)
[2021-12-15 18:12] VITALS: BP 150/57
[2021-12-16 10:07] LABS: ANTI-MYELOPEROXIDASE AB < 9.0 U/mL (0.0-9.0); ANTI-PROTEINASE 3 ABS < 3.5 U/mL (0.0-3.5)
[2021-12-17 13:11] LABS: ATYPICAL P-ANCA <1:20 titer (Neg:<1:20); CYTOPLASMIC C-ANCA <1:20 titer (Neg:<1:20); PERINUCLEAR P-ANCA <1:20 titer (Neg:<1:20)
== END 2021-12-15 19:12 | disposition home or self-care (01) | DRG 291 ==
LOC: ER 09:23 → 6WST 13:16 → EDBEDREQ 13:22
PROVIDERS: ADMIT Internal Medicine Pulmonary Disease; ATTEND Internal Medicine Pulmonary Disease
PROC: 30233N1 Transfusion of Nonautologous Red Blood Cells into Peripheral Vein, Percutaneous Approach (ICD-10-PCS; principal; 2021-12-12)
DX: I13.0 Hypertensive heart and chronic kidney disease with heart failure and stage 1 through stage 4 chronic kidney disease, or unspecified chronic kidney disease (principal); I50.23 Acute on chronic systolic (congestive) heart failure; J96.00 Acute respiratory failure, unspecified whether with hypoxia or hypercapnia; J18.9 Pneumonia, unspecified organism; N17.9 Acute kidney failure, unspecified; J44.0 Chronic obstructive pulmonary disease with (acute) lower respiratory infection; E44.1 Mild protein-calorie malnutrition; N18.4 Chronic kidney disease, stage 4 (severe); J44.1 Chronic obstructive pulmonary disease with (acute) exacerbation; K92.1 Melena; D73.4 Cyst of spleen; E87.6 Hypokalemia; I71.4 Abdominal aortic aneurysm, without rupture; E87.8 Other disorders of electrolyte and fluid balance, not elsewhere classified; E86.9 Volume depletion, unspecified; I25.10 Atherosclerotic heart disease of native coronary artery without angina pectoris; I25.2 Old myocardial infarction; D63.8 Anemia in other chronic diseases classified elsewhere; Z95.5 Presence of coronary angioplasty implant and graft; Z86.73 Personal history of transient ischemic attack (TIA), and cerebral infarction without residual deficits; Z90.710 Acquired absence of both cervix and uterus; Z87.01 Personal history of pneumonia (recurrent); Z68.23 Body mass index [BMI] 23.0-23.9, adult; Z79.02 Long term (current) use of antithrombotics/antiplatelets; Z79.82 Long term (current) use of aspirin; Z82.49 Family history of ischemic heart disease and other diseases of the circulatory system
CPT/HCPCS: 36415; 36600; 71045; 76770; 80048; 80053; 81003; 82043; 82270; 82375; 82550; 82570; 82607; 82728; 82746; 82805; 83010; 83520; 83540; 83550; 83615; 83735; 83880; 83935; 84100; 84300; 84484; 85014; 85018; 85025; 85044; 85049; 85384; 85651; 86256; 86850; 86880; 86900; 86920; 93005; 94640; 97162; 99291; C1893; C9113; J0885; J1940; J2543; J2920; J3480; J7060; P9016